=== PATIENT | male | born 1960 | race Caucasian/White ===

== ENCOUNTER 2018-04-26 21:16 | Emergency (ER) | payer OTHER, SELFPAY ==
[2018-04-26 21:18] VITALS: BP 138/86; PULSE 75; RESP 14; TEMP 36.5; O2SAT 100; BMI 21.7
[2018-04-26 22:43] VITALS: PULSE 62; RESP 18; O2SAT 96
--- NOTE | 2018-04-26 23:10 | EKG12_ITS ---
Test Reason : CP Blood Pressure : / mmHG Vent. Rate : 058 BPM Atrial Rate : 058 BPM P-R Int : 156 ms QRS Dur : 100 ms QT Int : 432 ms P-R-T Axes : 055 -18 058 degrees QTc Int : 424 ms Sinus bradycardia Cannot rule out Inferior infarct , age undetermined Abnormal ECG Confirmed by GARY VILLALOBOS, ANDRÉS ([id number]), proposal editor CARLOS HARRIS ([id number]) on 04/27/2018 1:34:46 PM Referred By: NADIRA Confirmed By:ANDRÉS VEGA MD
--- NOTE | 2018-04-26 23:10 | RAD_ITS ---
STUDY: X-RAY CHEST REASON FOR EXAM: Male, 58 years old. Fatigue. TECHNIQUE: PA and lateral views of the chest. COMPARISON: Prior comparison studies are not available for review at this time. FINDINGS: Cardiac monitoring leads are present. There is hyperinflation of the lungs consistent with chronic obstructive lung disease (COPD). There is no demonstrated pleural abnormality. Normal size heart. Normal mediastinum and holli. There is prominence of the pulmonary hilar arteries without peripheral pulmonary vascular congestion. There is atherosclerotic calcification of the aortic arch with tortuosity. There are diffuse degenerative changes of the visualized thoracic spine. Normal visualized ribs, clavicles, and shoulders. There is no demonstrated abnormality of the visualized soft tissue structures of the upper abdomen. RAD/Chest PA and Lateral IMPRESSION: COPD without radiographic evidence of acute cardiopulmonary disease. Electronically Signed: Sherry Jarvis MD at 0:43 EDT , Service support ,
[2018-04-26 23:31] LABS: Bacteria 0 SEEN /hpf (None Seen); Mucous, Urine 0 SEEN /hpf (<or=2+); Red Blood Cells-Urine 0 SEEN /hpf (0-5); Squamous Epithelial Cells - UA 0 SEEN /hpf (0-5); White Blood Cells 0 SEEN /hpf (0-5)
[2018-04-26 23:36] LABS: Absolute Lymphocyte Count 2.46 X10^3/ul (0.83-4.51); Absolute Neutrophil Count 5.8 X10^3/uL (2.0-7.7); Basophil# 0.01 X10^3/uL; Basophil% 0.1 % (0-1); Eosinophil# 0.27 X10^3/uL; Eosinophils% 2.9 % (0-5); Hematocrit 36.2 % (40-54); Hemoglobin 12.5 g/dl (13.0-16.5); Lymphocyte # 2.46 X10^3/ul (4.0); Lymphocyte % 26.3 % (19-41); Mean Corp Hgb Conc 34.5 g/gl (32-36); Mean Corpuscular Hgb 31.4 pg (27.0-32.0); Mean Platelet Vol. 9.2 fl (6.2-12.0); Monocyte# 0.82 X10^3/uL; Monocyte% 8.8 % (0-10); Neutrophil # 5.79 X10^3/uL (2.7-7.7); Neutrophil % 61.8 % (47-70); Platelet Count 235 K/mm3 (150-450); RBC Distribution Width CV 13.1 % (11.6-14.6); RBC Distribution Width SD 43.2 fl (35.1-43.9); Red Blood Count 3.98 M/mm3 (4.6-6.2); White Blood Count 9.4 K/mm3 (4.4-11.0)
[2018-04-26 23:38] LABS: POSITIVE COUNT NO; POSITIVE DIFFERENTIAL NO; POSITIVE MORPHOLOGY NO
[2018-04-26 23:45] LABS: Anion Gap 9 (5-15); BUN 15 mg/dL (7-18); BUN/Creat Ratio 18.7 RATIO (10-20); Calcium,Total 9.1 mg/dL (8.5-10.1); Chloride 102 mmol/L (98-107); EST Glomerular Filtration Rate 104 mL/min (>60); Est Glom Filt Rate - Afr Amer 126 mL/min (>60); Estimated Creatinine Clearance 92.47 ml/min; Glucose 84 mg/dL (74-106); Potassium 4.1 mmol/L (3.5-5.1); Sodium Level 141 mmol/L (136-145)
[2018-04-26 23:51] LABS: Glucose, Dipstick Normal (Normal); Ketone-Dipstick Negative (Negative); Leukocyte Esterase-Dipstick 25 /ul (Negative); Nitrite-Dipstick Negative (Negative); Occult Blood-Urine 10 /ul (Negative); Protein-Dipstick Negative (Negative); Urine Bilirubin Dipstick Negative (Negative); Urine Urobilinogen Normal (Normal); Urine pH 6.5 (5.0 - 8.0)
[2018-04-26 23:52] LABS: Color, Urine Yellow (Yellow); Urine Clarity Clear (Clear)
--- NOTE | 2018-04-27 00:52 | ED.VISSUMM ---
- ER Visit Summary Date of Service: 04/27/18 Chief Complaint: I do not have a family doctor and have been exhausted History of Present Illness: The patient is a 58 M who presents with fatigue. He states he has been very tired over the last week. He also has had some intermittent lightheadedness. He notes a 20 pound weight loss over the last 1-1/2 months. He does not really have any other focal symptoms. He denies fever congestion rhinorrhea sore throat chest pain shortness of breath cough abdominal pain nausea vomiting diarrhea. Denies blood in the stool. He denies urinary symptoms. Physical Examination: Afebrile vitals unremarkable Moist mucous membranes Heart regular rate and rhythm Lungs are clear Abdomen soft nontender Alert Normal affect Patient does have a hoarse voice which she states is related to a vocal cord surgery for a nodule and he was told that his voice may be hoarse for up to a year. Test Results: CBC notable for hemoglobin 12.5. Chemistries normal. Urinalysis normal. EKG shows sinus rhythm at a rate of 58 with no acute ischemic changes. Chest x-ray shows COPD no acute process. Emergency Department Course and Treatment: Patient's workup is unremarkable I do not see an indication for hospitalization or any further emergent intervention. However I did advise that he will require further outpatient workup. Given unexplained weight loss and fatigue he will likely need further workup including a colonoscopy. I advised him of this. He was given her referral to establish primary care physician as he does not have one. He was referred to Dr. Sanders who is next on the no [facility] PCP referral list. Treatment Plan: [] Disposition: Discharge Impression: Fatigue Weight loss This note was generated with [employer] dictation software. It may contain incorrect words, spelling, and punctuation that were not noted in review of the chart prior to signing ED Disposition - Plan for ED Patient: Chief Complaint: Fatigue Referrals: Care Physician,No Primary [Primary Care Provider] -
--- NOTE | 2018-04-27 00:55 | ED.DCSUM_ITS ---
- ER Visit Summary Date of Service: 04/27/18 Chief Complaint: I do not have a family doctor and have been exhausted History of Present Illness: The patient is a 58 M who presents with fatigue. He states he has been very tired over the last week. He also has had some intermittent lightheadedness. He notes a 20 pound weight loss over the last 1-1 /2 months. He does not really have any other focal symptoms. He denies fever congestion rhinorrhea sore throat chest pain shortness of breath cough abdominal pain nausea vomiting diarrhea. Denies blood in the stool. He denies urinary symptoms. Physical Examination: Afebrile vitals unremarkable Moist mucous membranes Heart regular rate and rhythm Lungs are clear Abdomen soft nontender Alert Normal affect Patient does have a hoarse voice which she states is related to a vocal cord surgery for a nodule and he was told that his voice may be hoarse for up to a year. Test Results: CBC notable for hemoglobin 12.5. Chemistries normal. Urinalysis normal. EKG shows sinus rhythm at a rate of 58 with no acute ischemic changes. Chest x-ray shows COPD no acute process. Emergency Department Course and Treatment: Patient's workup is unremarkable I do not see an indication for hospitalization or any further emergent intervention. However I did advise that he will require further outpatient workup. Given unexplained weight loss and fatigue he will likely need further workup including a colonoscopy. I advised him of this. He was given her referral to establish primary care physician as he does not have one. He was referred to Dr. Sanders who is next on the no [facility] PCP referral list. Treatment Plan: [] Disposition: Discharge Impression: Fatigue Weight loss This note was generated with [employer] dictation software. It may contain incorrect words, spelling, and punctuation that were not noted in review of the chart prior to signing ED Disposition - Plan for ED Patient: Chief Complaint: Fatigue Referrals: Care Physician,No Primary [Primary Care Provider] -
--- NOTE | 2018-04-27 00:55 | ED.DEP ---
ED Disposition - Plan for ED Patient: Chief Complaint: Fatigue Instructions: ED Weakness [facility] Referrals: Care Physician,No Primary [Primary Care Provider] - Matias Sanders DO [STAFF PHYSICIAN] -
[2018-04-27 01:01] VITALS: BP 132/71; PULSE 74; RESP 16; O2SAT 98
== END 2018-04-27 01:01 | disposition home or self-care (01) ==
PROVIDERS: Emergency Provider Emergency Medicine
DX: R53.83 Other fatigue (principal); R63.4 Abnormal weight loss; Z72.0 Tobacco use
CPT/HCPCS: 71046; 80048; 81001; 85025; 93005; 99284; A4216

== ENCOUNTER → 2018-05-19 10:49 | Outpatient (CLI) | payer OTHER, SELFPAY ==
[2018-05-19 13:08] LABS: Cholesterol 205 mg/dL (200); High Density Lipoprotein 71 mg/dL; PSA,Total - Annual Screen 1.17 ng/mL (0.00-4.00); Thyroid Stim Hormone (TSH) 2.38 uIU/mL (0.358-3.74); Triglycerides 46 mg/dL; Very Low Density Lipoprotein 9 mg/dL (5-40)
== END ==
PROVIDERS: Family Provider Family Medicine; PCP Family Medicine; Visit Provider Family Medicine
DX: R63.4 Abnormal weight loss (principal); Z85.21 Personal history of malignant neoplasm of larynx
CPT/HCPCS: 36415; 80061; 84153; 84443; G0103

== ENCOUNTER → 2018-05-29 07:15 | Outpatient (CLI) | payer OTHER, SELFPAY ==
--- NOTE | 2018-05-29 07:18 | CT_ITS ---
STUDY: CT CHEST WITH CONTRAST REASON FOR EXAM: Male, 58 years old. 25 pound weight loss in 1 month. 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 Smoker x1 PPD. RADIATION DOSAGE (If Supplied By Facility): CTDIvol = ( 11.3 ) mGy, DLP = ( 1045.83 ) mGycm TECHNIQUE: Transaxial imaging was performed following intravenous administration of 100 ml of Isovue 300 contrast material. Coronal and sagittal reconstructions were performed. Individualized dose optimization techniques were used for this CT. COMPARISON: None. FINDINGS: Pulmonary hyperinflation with flattening of the hemidiaphragms. No pulmonary nodules or mass. No reticulation. No centrilobular cysts. No paraseptal cysts. No blebs or bullous emphysema. There is no demonstrated pleural abnormality. Normal heart and pericardium. Normal mediastinum. Normal hilar regions. Normal enhanced pulmonary arteries. Normal aorta arch and descending thoracic aorta. Old compression fractures of the T7, T8 and T9 vertebral bodies. Anterior and lateral marginal spurs of the thoracic spine. No acute osseous abnormality. No lytic or blastic lesions. There is no demonstrated abnormality of the visualized upper abdomen. CT/Chest WITH Contrast IMPRESSION: 1. No CT evidence of any suspicious mass or malignant lesions in the chest. 2. Mild COPD without any associated centrilobular cysts, paraseptal cysts, blebs or bullous emphysema. 3. Loss of the vertebral body heights of T7 and T8 vertebral bodies and mild anterior wedging of the T9 superior endplate are presumably from remote injury. Electronically Signed: Lev Horton MD at 9:05 EDT , Service support ,
--- NOTE | 2018-05-29 07:18 | CT_ITS ---
STUDY: CT ABDOMEN AND PELVIS WITH CONTRAST REASON FOR EXAM: Male, 58 years old. Weight loss of 25 pounds in 1 month. History of laryngeal carcinoma, radiation treatment and tumor removed from vocal cord. Smoker x1 PPD. RADIATION DOSAGE (If Supplied By Facility): CTDIvol = ( 11.3 ) mGy, DLP = ( 1045.83 ) mGycm TECHNIQUE: Transaxial images were obtained from the dome of the diaphragm to the symphysis pubis with oral contrast. 100 ml of Isovue 300 contrast was administered. Sagittal and coronal images were reconstructed. Individualized dose optimization techniques were used for this CT. COMPARISON: None. FINDINGS: The visualized lung bases are unremarkable. The visualized portions of the heart are within normal limits. Normal liver. Normal gallbladder and extrahepatic biliary system. Normal spleen. Normal pancreas. Normal bilateral adrenal glands. Normal right kidney. Normal left kidney. Normal visualized stomach. Normal small intestine. Limited visualization of the colon due to absence of colorectal contrast and the paucity of intra-abdominal and intrapelvic fat. No obvious abnormality of the colon. Fecal contents in the cecum, ascending colon and transverse colon. The descending colon is collapsed. No fecal contents in the rectosigmoid colon. There is gaseous dilatation/distention of the rectum. The appendix is not visualized and is extremely difficult to find. Atherosclerotic calcifications along the infrarenal abdominal aorta and the iliac arteries. Normal inferior vena cava. Normal retroperitoneum. Normal urinary bladder. Enlarged central lobe of the prostate gland is at least BPH. Normal abdominal wall. No acute osseous abnormality. CT/Abdomen/Pelvis WITH Contrast IMPRESSION: 1. No CT evidence of any suspicious mass or acute abnormality in the abdomen and pelvis. 2. Enlarged Central lobe of the prostate gland is at least BPH. 3. Moderate amount of fecal contents in the right colon and transverse colon but none in the left colon and sigmoid colon. Lack of colorectal contrast and lack of intra-abdominal fat limits the evaluation and visualization of the entire colon. Electronically Signed: Lev Horton MD at 8:51 EDT , Service support ,
== END ==
PROVIDERS: Family Provider Family Medicine; PCP Family Medicine; Referring Provider Family Medicine; Visit Provider Family Medicine
DX: R63.4 Abnormal weight loss (principal); J44.9 Chronic obstructive pulmonary disease, unspecified; F17.200 Nicotine dependence, unspecified, uncomplicated; Z85.21 Personal history of malignant neoplasm of larynx
CPT/HCPCS: 71260; 74177; Q9967

== ENCOUNTER 2021-12-24 13:30 | Outpatient (RCR) | payer OTHER, SELFPAY ==
--- NOTE | 2021-09-17 15:28 | HP.PTEVAL_ITS ---
Patient's Visit Information ROSS PHAN is a 61 year old M referred to Physical Therapy by Dr. Juancarlos Jarvis MD with a diagnosis of Closed Displaced Fracture of Proximal End of Right Humerus- s/p ORIF. Date of Evaluation: 09/17/21 Physical Therapist: Monica Ornelas DPT - Visit Plan Frequency: 2x /Week Duration: 4 Weeks Plan: Follow MD Recommendations: Phase 1 - PROM without limits- OK for aggressive elbow and wrist motion. HEP Given IE: Wrist and Elbow ROM exercises - Subjective Slipped on ice at work on September 07, 2021- took him straight to the ER- the bone was 5 inches from where it suppose to be. Dr. Juancarlos Jarvis put a plate in it and then sent him home. 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 Right hand dominate. MD had him in a sling for surgery but told him that he is was allowed to take it off. He told him to keep it moving. He is walking it up the wall at home. He has been working his wrist/elbow. The shoul ulisses gets pretty painful. The pain is located in the anterior shoulder and radiate to the elbow, wrist and middle finger. Worst: 6/10 Agg: moving it around. Eases: ice pack and pulling it back in towards his body. Best: 1-210. Describes the pain as dull and achy and sharp/shooting- comes and goes. Sleep: in bed- not disturbed. Does have some numbness in his hand and feels cold. Fully I with everything prior to the fall. He lives alone but has family close that helps. Follow up visit with 09/29/2021. No neck pain since he took the sling off, no blurred vision, dizziness, or ALMEIDA. PMHx: cancer surgery 5 years ago- vocal cord Meds: none - Objective Posture: FH, RS- no sling but guards his right UE. Observation: incision healing well. Palpation: tender throughout shoulder- medial border of the scapula, infraspinatus, bicipital groove, down to the elbow. ROM: Cervical: WNL PROM Shoulder: Flexion:60 degrees, Abd: 50 degrees, IR: to belly, ER: 30 degr ees, Elbow: Flexion: 120 degrees Extn: -30 degrees, Supination: 20 degrees Pronation: WFL Flexion: 40 degrees Extn: 55 degrees. Finger Dexterity: can touch thumb to all but pinky. - Balance/Special Test Scores Quick DASH Score: 68.1800 - Goals Goal 1:: Patient will be I with HEP and progression Goal Time Frame: 4-6 Weeks Goal 2:: Patient will maintain proper posture t/o tx session to demo increased scap s/s Goal Time Frame: 4-6 Weeks Goal 3:: Patient will demo full AROM of the right shoulder (as per MD phases) Goal Time Frame: 4-6 Weeks Goal 4:: Patient will return to work with no restrictions (as per MD recommendations) Goal Time Frame: 4-6 Weeks - Rehabilitation Potential Physical Therapy Diagnosis: Patient presents with hypomobility s/p ORIF of right humerus. He has decreased pain free ROM, UE and scapular s/s and muscular endurance leading to poor posture and increased pain with ADL's. Rehabilitation Potential: Fair - Anticipated Interventions Patient/Client Instruction: Educate patient on: Benefits of Fitness Program Therapeutic Exercise to Include: Strength training, Endurance training, Body mechanics, Postural training, Passive ROM, Active ROM, Scapular Strength/Stabilization For the Purpose of:: To improve muscle performance and motor function Manual Therapy Techniques to Include: Passive ROM, Soft tissue mobilization TENS: Yes Cryotherapy (ice pack, ice massage): Yes Thermo therapy (hot pack): Yes Ultrasound (thermal/non thermal): No Thank you for the opportunity to evaluate your patient. For Medicare and Medicare HMO plans, please review the plan of care and approve it. It will need to be FAXED BACK to us at [phone] for Medicare purposes. For Medicare only, by signing this I certify the plan of care. Please let me know if there are questions or concerns regarding this plan of care. Physician Signature: Date:
--- NOTE | 2021-10-15 16:50 | HP.PTREVAL ---
Dr. Juancarlos Jarvis MD, It has been my pleasure to treat ROSS PHAN over the last 8 visits for Closed Displaced Fracture of Proximal End of Right Humerus- s/p ORIF. Please see the progress note below for an update on the physical therapy plan of care! Subjective: Patient reports that the pain in the shoulder comes and goes. Hard to put on his socks and shoes. Has not been lifting anything more than a coffee cup. He goes back to the MD October 27. Worst: -02/14 Agg: moving it around and sometimes when he lays down. Sleep: better- in bed- sometimes it wakes him up. Objective/Function: Posture: FH, RS. Observation: incision healing well. Palpation: tender throughout shoulder- medial border of the scapula, infraspinatus, bicipital groove, down to the elbow. ROM: Cervical: WNL PROM Shoulder: Flexion:90 degrees, Abd: 60 degrees, IR: to belly, ER: 50 degrees, Elbow: Flexion: 150 degrees Extn: 0 degrees, Supination: 30 degrees Pronation: WFL Finger Dexterity: can touch all to thumb Plan Plan: Follow MD Recommendations: Phase 1 - PROM without limits- OK for aggressive elbow and wrist motion Balance/Gait/Functional tests - Balance/Special Test Scores Quick DASH Score: 63.6350 Goals Goal 1:: Patient will be I with HEP and progression Goal Time Frame: 4-6 Weeks Goal Progress: Progressing Goal 2:: Patient will maintain proper posture t/o tx session to demo increased scap s/s Goal Time Frame: 4-6 Weeks Goal Progress: Progressing Goal 3:: Patient will demo full AROM of the right shoulder (as per MD phases) Goal Time Frame: 4-6 Weeks Goal Progress: Progressing Goal 4:: Patient will return to work with no restrictions (as per MD recommendations) Goal Time Frame: 4-6 Weeks Goal Progress: Progressing Anticipated Interventions Patient/Client Instruction: Educate patient on: Benefits of Fitness Program Therapeutic Exercise to Include: Strength training, Endurance training, Body mechanics, Postural training, Passive ROM, Active ROM, Scapular Strength/Stabilization For the Purpose of:: To improve muscle performance and motor function Manual Therapy Techniques to Include: Passive ROM, Soft tissue mobilization TENS: Yes Cryotherapy (ice pack, ice massage): Yes Thermo therapy (hot pack): Yes Ultrasound (thermal/non thermal): No Please do not hesitate to contact me at [phone] by phone or if you have questions or concerns regarding this new plan of care! Sincerely, BELLA JohnT
--- NOTE | 2021-10-29 16:40 | HP.PTREVAL ---
Dr. Juancarlos Jarvis MD, It has been my pleasure to treat ROSS PHAN over the last 12 visits for Closed Displaced Fracture of Proximal End of Right Humerus- s/p ORIF. Please see the progress note below for an update on the physical therapy plan of care! Subjective: Patient reports that he saw the doctor on Tuesday who reports that he is able to lift as long as its tolerable. Reports that the pain is bad when he tries to move it and then he lays on a heating pad. Goes back to see him December 08 and was written off work until December 13, 2021- light duty. He has to lift a lot of weight multiple times. Objective/Function: Posture: FH, RS. Observation: incision healing well. Palpation: tender throughout shoulder- medial border of the scapula, infraspinatus, bicipital groove, down to the elbow. ROM: Cervical: WNL PROM Shoulder: Flexion:90 degrees, Abd: 60 degrees, IR: to belt line, ER: 50 degrees, Elbow: Flexion: 150 degrees Extn: 0 degrees, Supination: 30 degrees Pronation: WFL Finger Dexterity: can touch all to thumb Plan Plan: Follow MD Recommendations: Phase 1 - PROM without limits- OK for aggressive elbow and wrist motion Balance/Gait/Functional tests - Balance/Special Test Scores Quick DASH Score: 63.6350 Goals Goal 1:: Patient will be I with HEP and progression Goal Time Frame: 4-6 Weeks Goal Progress: Progressing Goal 2:: Patient will maintain proper posture t/o tx session to demo increased scap s/s Goal Time Frame: 4-6 Weeks Goal Progress: Progressing Goal 3:: Patient will demo full AROM of the right shoulder (as per MD phases) Goal Time Frame: 4-6 Weeks Goal Progress: Progressing Goal 4:: Patient will return to work with no restrictions (as per MD recommendations) Goal Time Frame: 4-6 Weeks Goal Progress: Progressing Anticipated Interventions Patient/Client Instruction: Educate patient on: Benefits of Fitness Program Therapeutic Exercise to Include: Strength training, Endurance training, Body mechanics, Postural training, Passive ROM, Active ROM, Scapular Strength/Stabilization For the Purpose of:: To improve muscle performance and motor function Manual Therapy Techniques to Include: Passive ROM, Soft tissue mobilization TENS: Yes Cryotherapy (ice pack, ice massage): Yes Thermo therapy (hot pack): Yes Ultrasound (thermal/non thermal): No Please do not hesitate to contact me at [phone] by phone or if you have questions or concerns regarding this new plan of care! Sincerely, BELLA JohnT
--- NOTE | 2022-02-17 14:36 | HP.PT.NRP ---
ROSS AGIURREJulianna was seen in my office for initial evaluation on 09/17/21. The following Plan of Care was established for this patient: Initial Frequency: 2x /Week Initial Duration: 4 Weeks Patient/Client Instruction: Educate patient on: Benefits of Fitness Program Therapeutic Exercise to Include: Strength training, Endurance training, Body mechanics, Postural training, Passive ROM, Active ROM, Scapular Strength/Stabilization For the Purpose of:: To improve muscle performance and motor function Manual Therapy Techniques to Include: Passive ROM, Soft tissue mobilization TENS: Yes Cryotherapy (ice pack, ice massage): Yes Thermo therapy (hot pack): Yes Ultrasound (thermal/non thermal): No This patient was last seen in our office . Pertinent comments regarding their Physical therapy will appear below: Patient has not attended PT in over 30 days- appropriate to be d/c at this time and return to MD for further evalatuion At this point I will be discontinuing this patient from physical therapy. I would be happy to see this patient again in the future if found appropriate by the physician. Thank you! Monica Ornelas DPT Balance/Gait/Functional tests - Balance/Special Test Scores Quick DASH Score: 63.6377
== END 2021-12-24 19:00 | disposition home or self-care (01) ==
LOC: PT 13:30
PROVIDERS: PCP Family Medicine; Referring Provider Orthopaedic Surgery; Visit Provider Orthopaedic Surgery
DX: S42.291D Other displaced fracture of upper end of right humerus, subsequent encounter for fracture with routine healing (principal)
CPT/HCPCS: 97110; 97140; 97162; 97164

== ENCOUNTER → 2022-03-04 | Outpatient (CLI) | payer OTHER, SELFPAY ==
[2022-03-04 09:31] VITALS: BP 159/73; PULSE 72; RESP 16; TEMP 37; O2SAT 99; BMI 24.3
== END | disposition home or self-care (01) ==
PROVIDERS: PCP Family Medicine; Referring Provider Internal Medicine Infectious Disease; Visit Provider Internal Medicine Infectious Disease
DX: T84.7XXA Infection and inflammatory reaction due to other internal orthopedic prosthetic devices, implants and grafts, initial encounter (principal); Z79.2 Long term (current) use of antibiotics
CPT/HCPCS: 36569

== ENCOUNTER → 2022-03-05 | Outpatient (CLI) | payer OTHER, SELFPAY ==
[2022-03-05 11:27] LABS: Erythrocyte Sedimentation Rate 12 mm/hr (0-20)
[2022-03-05 11:29] LABS: Absolute Lymphocyte Count 1.35 X10^3/uL (0.83-4.51); Absolute Neutrophil Count 7.7 X10^3/uL (2.0-7.7); Basophil# 0.02 X10^3/uL; Basophil% 0.2 % (0-1); Eosinophil# 0.24 X10^3/uL; Eosinophils% 2.4 % (0-5); Hematocrit 41.6 % (40-54); Hemoglobin 14.4 g/dL (13.0-16.5); Lymphocyte # 1.35 X10^3/ul (0.83-4.51); Lymphocyte % 13.4 % (19-41); Mean Corp Hgb Conc 34.6 g/dL (32-36); Mean Corpuscular Hgb 31.9 pg (27.0-32.0); Mean Platelet Vol. 10.1 fl (6.2-12.0); Monocyte# 0.75 X10^3/uL; Monocyte% 7.4 % (0-10); NRBC Flagged by Analyzer 0 % (0-5); Neutrophil # 7.68 X10^3/uL (2.7-7.7); Neutrophil % 76.3 % (47-70); Platelet Count 305 K/mm3 (150-450); RBC Distribution Width CV 13.5 % (11.6-14.6); RBC Distribution Width SD 46.1 fl (35.1-43.9); Red Blood Count 4.52 M/mm3 (4.6-6.2); White Blood Count 10.1 K/mm3 (4.4-11.0)
[2022-03-05 11:56] LABS: AST(SGOT) 20 U/L (15-37); Alanine Aminotransfer ALT/SGPT 21 U/L (16-61); Albumin, Serum 3.9 g/dL (3.2-5.0); Alkaline Phosphatase 106 U/L (45-117); Anion Gap 4 (5-15); BUN 13 mg/dL (7-18); BUN/Creat Ratio 16.3 RATIO (10-20); Bilirubin, Direct 0.13 mg/dL (0.00-0.30); CRP 4.71 mg/L (0.0-3.0); Calcium,Total 9.4 mg/dL (8.5-10.1); Chloride 105 mmol/L (98-107); EST Glomerular Filtration Rate 104 mL/min (>60); Est Glom Filt Rate - Afr Amer 126 mL/min (>60); Globulin 3.1 g/dL (2.2-4.2); Glucose 94 mg/dL (74-106); Potassium 4.5 mmol/L (3.5-5.1); Sodium Level 138 mmol/L (136-145)
[2022-03-05 12:21] LABS: Procalcitonin < 0.04 ng/mL (0.00-0.09)
== END | disposition home or self-care (01) ==
LOC: LABSPEC 11:13
PROVIDERS: PCP Family Medicine; Referring Provider Internal Medicine Infectious Disease; Visit Provider Internal Medicine Infectious Disease
DX: T84.7XXD Infection and inflammatory reaction due to other internal orthopedic prosthetic devices, implants and grafts, subsequent encounter (principal)
CPT/HCPCS: 80048; 80076; 84145; 85025; 85652; 86140

== ENCOUNTER → 2022-03-10 | Outpatient (CLI) | payer OTHER, SELFPAY ==
[2022-03-10 10:44] LABS: Erythrocyte Sedimentation Rate 14 mm/hr (0-20)
[2022-03-10 10:45] LABS: Absolute Lymphocyte Count 1.61 X10^3/uL (0.83-4.51); Absolute Neutrophil Count 6.8 X10^3/uL (2.0-7.7); Basophil# 0.03 X10^3/uL; Basophil% 0.3 % (0-1); Eosinophil# 0.24 X10^3/uL; Eosinophils% 2.5 % (0-5); Hematocrit 39.3 % (40-54); Hemoglobin 13.5 g/dL (13.0-16.5); Lymphocyte # 1.61 X10^3/ul (0.83-4.51); Lymphocyte % 16.9 % (19-41); Mean Corp Hgb Conc 34.4 g/dL (32-36); Mean Corpuscular Hgb 31.5 pg (27.0-32.0); Mean Corpuscular Volume 91.8 fL (80-94); Mean Platelet Vol. 9.9 fl (6.2-12.0); Monocyte% 8.4 % (0-10); NRBC Flagged by Analyzer 0 % (0-5); Neutrophil # 6.82 X10^3/uL (2.7-7.7); Neutrophil % 71.7 % (47-70); Platelet Count 268 K/mm3 (150-450); RBC Distribution Width CV 13.4 % (11.6-14.6); RBC Distribution Width SD 45.5 fl (35.1-43.9); Red Blood Count 4.28 M/mm3 (4.6-6.2); White Blood Count 9.5 K/mm3 (4.4-11.0)
[2022-03-10 11:04] LABS: Procalcitonin < 0.04 ng/mL (0.00-0.09)
[2022-03-10 11:07] LABS: AST(SGOT) 17 U/L (15-37); Alanine Aminotransfer ALT/SGPT 20 U/L (16-61); Albumin, Serum 3.7 g/dL (3.2-5.0); Alkaline Phosphatase 93 U/L (45-117); Anion Gap 5 (5-15); BUN 15 mg/dL (7-18); BUN/Creat Ratio 18.6 RATIO (10-20); Bilirubin, Direct 0.14 mg/dL (0.00-0.30); CRP 5.39 mg/L (0.0-3.0); Calcium,Total 9.2 mg/dL (8.5-10.1); Chloride 106 mmol/L (98-107); Creatinine, Serum 0.81 mg/dL (0.70-1.30); EST Glomerular Filtration Rate 103 mL/min (>60); Est Glom Filt Rate - Afr Amer 124 mL/min (>60); Glucose 96 mg/dL (74-106); Potassium 4.4 mmol/L (3.5-5.1); Protein, Total 6.7 g/dL (6.4-8.2); Sodium Level 137 mmol/L (136-145)
== END | disposition home or self-care (01) ==
PROVIDERS: PCP Family Medicine; Referring Provider Internal Medicine Infectious Disease; Visit Provider Internal Medicine Infectious Disease
DX: T84.7XXD Infection and inflammatory reaction due to other internal orthopedic prosthetic devices, implants and grafts, subsequent encounter (principal)
CPT/HCPCS: 80048; 80076; 84145; 85025; 85652; 86140

== ENCOUNTER → 2022-03-16 | Outpatient (CLI) | payer OTHER, SELFPAY ==
[2022-03-16 17:19] LABS: Hemoglobin 13.4 g/dL (13.0-16.5); Mean Corp Hgb Conc 34.4 g/dL (32-36); Mean Corpuscular Hgb 31.1 pg (27.0-32.0); Mean Corpuscular Volume 90.5 fL (80-94); Mean Platelet Vol. 9.9 fl (6.2-12.0); Platelet Count 292 K/mm3 (150-450); RBC Distribution Width CV 13.1 % (11.6-14.6); RBC Distribution Width SD 43.4 fl (35.1-43.9); Red Blood Count 4.31 M/mm3 (4.6-6.2); White Blood Count 12.1 K/mm3 (4.4-11.0)
[2022-03-16 17:48] LABS: Erythrocyte Sedimentation Rate 20 mm/hr (0-20)
[2022-03-16 20:28] LABS: Procalcitonin < 0.20 ng/mL (0.00-0.09)
[2022-03-16 20:42] LABS: AST(SGOT) 20 U/L (15-37); Alanine Aminotransfer ALT/SGPT 22 U/L (16-61); Albumin, Serum 3.8 g/dL (3.2-5.0); Alkaline Phosphatase 92 U/L (45-117); Anion Gap 8 (5-15); BUN 15 mg/dL (7-18); BUN/Creat Ratio 18.6 RATIO (10-20); Bilirubin, Direct 0.12 mg/dL (0.00-0.30); Calcium,Total 9.2 mg/dL (8.5-10.1); Chloride 103 mmol/L (98-107); Creatinine, Serum 0.81 mg/dL (0.70-1.30); EST Glomerular Filtration Rate 103 mL/min (>60); Est Glom Filt Rate - Afr Amer 124 mL/min (>60); Globulin 3.1 g/dL (2.2-4.2); Glucose 112 mg/dL (74-106); Potassium 3.8 mmol/L (3.5-5.1); Protein, Total 6.9 g/dL (6.4-8.2); Sodium Level 138 mmol/L (136-145)
== END | disposition home or self-care (01) ==
LOC: LABSPEC 17:08
PROVIDERS: PCP Family Medicine; Referring Provider Internal Medicine Infectious Disease; Visit Provider Internal Medicine Infectious Disease
DX: S42.291A Other displaced fracture of upper end of right humerus, initial encounter for closed fracture (principal)
CPT/HCPCS: 80048; 80076; 84145; 85027; 85652; 86140

== ENCOUNTER 2022-04-05 13:00 | Outpatient (RCR) | payer OTHER, SELFPAY ==
--- NOTE | 2022-03-02 16:04 | HP.PTEVAL_ITS ---
Patient's Visit Information ROSS PHAN is a 62 year old M referred to Physical Therapy by Dr. 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 Date of Evaluation: 03/02/22 Physical Therapist: Vineet Hameed, PT, Cert MDT, OCS - Visit Plan Frequency: 2x /Week Duration: 6 Weeks Plan: NWB RUE OKAY AROM SHOULDER ,ELBOW ,WRIST. PATIENT PLANS TO START IV FOR OSEOMYLTITIS. PT INTERVETIONS INTAILLY PROM/AAROM /AROM SHOULDER ELBOW/WRIST EZEKIEL ,MANUAL THERAPY ,MHP/CP AND STRENGTHNEING PER MD ORDER - Subjective This 62 y/o male presents to physical therapy with right shoulder humerus. Patient initially slipped on ice August. Patient went to [facility] did x-rays showed showed nonunion humerus fracture. Patient underwent s/p ORIF humerus Sep 14. Patient started Rehab but wasn't healing so did a 2nd surgery with addition of ORIF and bone graft February 04 placed in sling [address] February 16 and to started . Did a biopsy of bone found osteomyelitis and plan to start IV antibiotics. Patient has orders for NWB RUE and ROM for shoulder ,elbow and wrist. RTD March 16. Patient has mild pain . Patient denies paresthesia/tingling. Patient condition affects ADLS self hygiene ,functional tasks above 90 ,housework and unable to RTW. Patient symptoms affects sleeping. Patient goal is to RTW and do all functional activities without pain. MEDS: oxycodone,. Patient did x-rays on 02/16 look good alignment. SOCAIL: SINGLE. VOCATION: [employer]. HOBBIES : Hunting - Pain Right Shoulder Pain Intensity (Out of 10): 5 Pain Intensity Range: 10 - Objective POSTURE: rounded shoulders. SKIN: incision well approximate. NEURO: intact ,denies paresthesia/tingling. AROM: shoulder flexion 90 degrees, abduction 80 degrees in scapation ,elbow extension 10 degrees ,flexion 125 degrees. PROM: shoulder flexion 100 degrees ,abduction 105 degrees in scapation ER 65 degrees. MMT: NT shoulder - Balance/Special Test Scores Quick DASH Score: 63.6350 - Goals Goal 1:: I with HEP Goal Time Frame: 8-12 Weeks Goal 2:: Patient to increase AROM shoulder flexion /abduction 130 degrees> and ER 85 degrees and IR to reach bedind back Goal Time Frame: 8-12 Weeks Goal 3:: Patient to demonstrate 50% improvement with improved function and decrease pain Goal Time Frame: 8-12 Weeks Goal 4:: Patient to improve strength of RTC 4/5 and deltoid 4-/5 to improve function with OH activities Goal Time Frame: 8-12 Weeks Goal 5:: Patient to improve quick dash by 5 points to improve QOL and function with OH activities Goal Time Frame: 8-12 Weeks - Rehabilitation Potential Physical Therapy Diagnosis: Patient had revision ORIF and bone graft of right humerus with decrease ROM ,decrease strength which impairs function with ADLS's ,self hygiene and thus benefit skilled PT Rehabilitation Potential: Good - Anticipated Interventions Patient/Client Instruction: Educate patient on: Condition, Plan of Care For the Purpose of:: To decrease pain, To increase ROM, To improve muscle performance and motor function, To improve ability to perform ADL's, To increase tolerance to activity/condition/position, To improve performance and independence with ADL's, To improve ability of physical actions for home/community/work/leisure, To improve health of tissue, To decrease soft tissue restriction, To increase flexibility/ROM, To improve tolerance to ADL's Therapeutic Exercise to Include: Strength training, Endurance training, Passive ROM, Active ROM Comment: strengthening per MD For the Purpose of:: To decrease pain, To increase ROM, To improve muscle performance and motor function, To improve ability to perform ADL's, To increase tolerance to activity/condition/position, To improve ability of physical actions for home/community/work/leisure, To improve health of tissue, To decrease soft tissue restriction, To increase flexibility/ROM, To assume or resume ADL's, To improve tolerance to ADL's Manual Therapy Techniques to Include: Mobilization, Passive ROM Comment: G-H For the Purpose of:: To decrease pain, To increase ROM, To improve muscle performance and motor function, To improve ability to perform ADL's, To increase tolerance to activity/condition/position, To improve performance and independence with ADL's, To improve ability of physical actions for home/community/work/leisure, To improve health of tissue, To decrease soft tissue restriction, To increase flexibility/ROM, To improve tolerance to ADL's Cryotherapy (ice pack, ice massage): Yes Thermo therapy (hot pack): Yes For the Purpose of:: To decrease pain, To improve nutrient delivery to tissue, To increase oxygenation perfusion, To improve health of tissue, To decrease soft tissue restriction Thank you for the opportunity to evaluate your patient. For Medicare and Medicare HMO plans, please review the plan of care and approve it. It will need to be FAXED BACK to us at [phone] for Medicare purposes. For Medicare only, by signing this I certify the plan of care. Please let me know if there are questions or concerns regarding this plan of care. Physician Signature: Date:
--- NOTE | 2022-05-19 10:47 | HP.PT.NRP ---
ROSS PHAN was seen in my office for initial evaluation on 03/02/22. The following Plan of Care was established for this patient: Initial Frequency: 2x /Week Initial Duration: 6 Weeks Patient/Client Instruction: Educate patient on: Condition, Plan of Care For the Purpose of:: To decrease pain, To increase ROM, To improve muscle performance and motor function, To improve ability to perform ADL's, To increase tolerance to activity/condition/position, To improve performance and independence with ADL's, To improve ability of physical actions for home/community/work/leisure, To improve health of tissue, To decrease soft tissue restriction, To increase flexibility/ROM, To improve tolerance to ADL's Therapeutic Exercise to Include: Strength training, Endurance training, Passive ROM, Active ROM For the Purpose of:: To decrease pain, To increase ROM, To improve muscle performance and motor function, To improve ability to perform ADL's, To increase tolerance to activity/condition/position, To improve ability of physical actions for home/community/work/leisure, To improve health of tissue, To decrease soft tissue restriction, To increase flexibility/ROM, To assume or resume ADL's, To improve tolerance to ADL's Manual Therapy Techniques to Include: Mobilization, Passive ROM Comment: G-H For the Purpose of:: To decrease pain, To increase ROM, To improve muscle performance and motor function, To improve ability to perform ADL's, To increase tolerance to activity/condition/position, To improve performance and independence with ADL's, To improve ability of physical actions for home/community/work/leisure, To improve health of tissue, To decrease soft tissue restriction, To increase flexibility/ROM, To improve tolerance to ADL's Cryotherapy (ice pack, ice massage): Yes Thermo therapy (hot pack): Yes For the Purpose of:: To decrease pain, To improve nutrient delivery to tissue, To increase oxygenation perfusion, To improve health of tissue, To decrease soft tissue restriction This patient was last seen in our office . Pertinent comments regarding their Physical therapy will appear below: Patient was seen for PT for revision of ORIF of shoulder with PT focusing on ROM and strengthening thus at this point, patient is d/c to HEP At this point I will be discontinuing this patient from physical therapy. I would be happy to see this patient again in the future if found appropriate by the physician. Thank you! Vineet Hameed, PT, Cert MDT, OCS Balance/Gait/Functional tests - Balance/Special Test Scores Quick DASH Score: 17.5000
== END 2022-04-05 19:00 | disposition home or self-care (01) ==
LOC: PT 13:00
PROVIDERS: PCP Family Medicine; Referring Provider Orthopaedic Surgery; Visit Provider Orthopaedic Surgery
DX: S42.201K Unspecified fracture of upper end of right humerus, subsequent encounter for fracture with nonunion (principal); X58.XXXD Exposure to other specified factors, subsequent encounter
CPT/HCPCS: 97110; 97162

== ENCOUNTER → 2022-04-29 | Outpatient (CLI) | payer OTHER, SELFPAY ==
[2022-04-29 10:09] LABS: Absolute Lymphocyte Count 1.76 X10^3/uL (0.83-4.51); Basophil# 0.02 X10^3/uL; Basophil% 0.2 % (0-1); Eosinophil# 0.26 X10^3/uL; Eosinophils% 2.3 % (0-5); Hematocrit 45.2 % (40-54); Hemoglobin 15.1 g/dL (13.0-16.5); Lymphocyte # 1.76 X10^3/ul (0.83-4.51); Lymphocyte % 15.9 % (19-41); Mean Corp Hgb Conc 33.4 g/dL (32-36); Mean Corpuscular Hgb 30.6 pg (27.0-32.0); Mean Corpuscular Volume 91.5 fL (80-94); Mean Platelet Vol. 9.1 fl (6.2-12.0); Monocyte# 1.02 X10^3/uL; Monocyte% 9.2 % (0-10); NRBC Flagged by Analyzer 0 % (0-5); Neutrophil # 7.97 X10^3/uL (2.7-7.7); Platelet Count 301 K/mm3 (150-450); RBC Distribution Width SD 43.6 fl (35.1-43.9); Red Blood Count 4.94 M/mm3 (4.6-6.2); White Blood Count 11.1 K/mm3 (4.4-11.0)
[2022-04-29 10:19] LABS: Erythrocyte Sedimentation Rate 27 mm/hr (0-20)
== END | disposition home or self-care (01) ==
LOC: PAVLAB 09:54
PROVIDERS: PCP Family Medicine; Referring Provider Internal Medicine Infectious Disease; Visit Provider Internal Medicine Infectious Disease
DX: M00.011 Staphylococcal arthritis, right shoulder (principal)
CPT/HCPCS: 36415; 85025; 85652; 86140

== ENCOUNTER → 2022-05-13 | Outpatient (CLI) | payer OTHER, SELFPAY ==
[2022-05-13 09:11] LABS: Erythrocyte Sedimentation Rate 7 mm/hr (0-20)
[2022-05-13 09:13] LABS: Absolute Lymphocyte Count 1.96 X10^3/uL (0.83-4.51); Basophil# 0.04 X10^3/uL; Basophil% 0.4 % (0-1); Eosinophils% 2.6 % (0-5); Hematocrit 42.3 % (40-54); Hemoglobin 14.3 g/dL (13.0-16.5); Lymphocyte # 1.96 X10^3/ul (0.83-4.51); Lymphocyte % 17.3 % (19-41); Mean Corp Hgb Conc 33.8 g/dL (32-36); Mean Corpuscular Hgb 31.1 pg (27.0-32.0); Mean Platelet Vol. 9.2 fl (6.2-12.0); Monocyte# 1.02 X10^3/uL; NRBC Flagged by Analyzer 0 % (0-5); Neutrophil % 70.3 % (47-70); Platelet Count 314 K/mm3 (150-450); RBC Distribution Width CV 13.2 % (11.6-14.6); RBC Distribution Width SD 44.5 fl (35.1-43.9); White Blood Count 11.4 K/mm3 (4.4-11.0)
[2022-05-13 09:58] LABS: CRP < 2.90 mg/L (0.0-3.0)
[2022-05-13 10:04] LABS: Vitamin D,25 Hydroxy 62.4 ng/mL
== END | disposition home or self-care (01) ==
LOC: PAVLAB 08:45
PROVIDERS: PCP Family Medicine; Referring Provider Internal Medicine Infectious Disease; Visit Provider Internal Medicine Infectious Disease
DX: M00.9 Pyogenic arthritis, unspecified (principal); E55.9 Vitamin D deficiency, unspecified
CPT/HCPCS: 36415; 82306; 85025; 85652; 86140

== ENCOUNTER 2024-09-02 15:44 | Inpatient (IN) | payer BC, MEDICARE, SELFPAY ==
[2024-09-02] VITALS (12 sets, daily range): BP systolic 90–171; BP diastolic 69–116; PULSE 67–86; RESP 15–24; TEMP 36–37.2; O2SAT 91–100; BMI 24.2; BMI 22.8
--- NOTE | 2024-09-02 16:03 | EKG12_ITS ---
Test Reason : AM EKG Blood Pressure : */* mmHG Vent. Rate : 67 BPM Atrial Rate : 67 BPM P-R Int : 166 ms QRS Dur : 108 ms QT Int : 436 ms P-R-T Axes : 59 -56 128 degrees QTcB Int : 460 ms Sinus rhythm with Premature atrial complexes Left axis deviation Left ventricular hypertrophy with repolarization abnormality ( R in aVL , Sokolow-Shah , Beebe prod uct , Romhilt-Corbett ) Inferior infarct , age undetermined Abnormal ECG When compared with ECG of 02-Sep-2024 16:45, MANUAL COMPARISON REQUIRED DATA IS UNCONFIRMED Confirmed by SOCRATES VILLALOBOS, JENNIFER ([id number]), development editor WHITNEY WEATHERS ([id number]) on 09/03/2024 1:59:53 PM Referred By: Johnny Rivera Confirmed By: JENNIFER RIVERA MD
--- NOTE | 2024-09-02 16:08 | RAD_ITS ---
INDICATION: cough EXAMINATION/TECHNIQUE: X-RAY - XR Chest 2 Views COMPARISON: April 26, 2018 FINDINGS: LINES/DEVICES: None. LUNGS: No consolidation, edema or effusion. The lungs remain hyperinflated. No pneumothorax. MEDIASTINUM AND CARDIOVASCULAR STRUCTURES: Cardiac silhouette not enlarged. Central airways and mediastinal contour are unremarkable. BONES AND SOFT TISSUES: There are postsurgical changes within the visualized right proximal humerus. RAD/Chest PA and Lateral IMPRESSION: No radiographic evidence of acute cardiopulmonary disease. Electronically Signed: Osiris Moreno MD at 16:57 EST ,
[2024-09-02 16:28] LABS: Absolute Lymphocyte Count 0.88 X10^3/uL (0.83-4.51); Absolute Neutrophil Count 10.1 X10^3/uL (2.0-7.7); Basophil# 0.03 X10^3/uL; Basophil% 0.3 % (0-1); Eosinophil# 0.09 X10^3/uL; Eosinophils% 0.8 % (0-5); Hematocrit 40.5 % (40-54); Lymphocyte # 0.88 X10^3/ul (0.83-4.51); Lymphocyte % 7.4 % (19-41); Mean Corp Hgb Conc 34.6 g/dL (32-36); Mean Corpuscular Hgb 31.3 pg (27.0-32.0); Mean Corpuscular Volume 90.4 fL (80-94); Mean Platelet Vol. 8.8 fl (6.2-12.0); Monocyte# 0.76 X10^3/uL; Monocyte% 6.4 % (0-10); NRBC Flagged by Analyzer 0 % (0-5); Neutrophil # 10.06 X10^3/uL (2.7-7.7); Neutrophil % 84.5 % (47-70); Platelet Count 235 K/mm3 (150-450); RBC Distribution Width CV 13.4 % (11.6-14.6); RBC Distribution Width SD 44.8 fl (35.1-43.9); Red Blood Count 4.48 M/mm3 (4.6-6.2); White Blood Count 11.9 K/mm3 (4.4-11.0)
[2024-09-02 16:49] LABS: Anion Gap 6 (5-15); BUN 21 mg/dL (7-18); BUN/Creat Ratio 20.4 RATIO (10-20); Calcium,Total 9.3 mg/dL (8.5-10.1); Chloride 103 mmol/L (98-107); Creatinine, Serum 1.03 mg/dL (0.70-1.30); EST Glomerular Filtration Rate 77 mL/min (>60); Est Glom Filt Rate - Afr Amer 93 mL/min (>60); Estimated Creatinine Clearance 70.55 ml/min; Glucose 115 mg/dL (74-106); Potassium 4.1 mmol/L (3.5-5.1); Sodium Level 135 mmol/L (136-145); Troponin-I HS 448 pg/mL (3.0-78.0)
--- NOTE | 2024-09-02 16:50 | EDS_ITS ---
HPI <NERIS Acosta - Last Filed: 09/02/24 17:05> History of Present Illness Chief Complaint: Cough Narrative Narrative: 64-year-old male with past medical history of tobacco use and no significant medical history presents with 2 weeks of cough and acute midsternal chest pain that started at 3 PM today. His chest pain is worse if he lies down. He denies shortness of breath or nausea or vomiting. No known cardiac history. He states he has not followed up with his primary care doctor in about 6 months. PFSH <NERIS Acosta - Last Filed: 09/02/24 17:05> PFSH Home Medications ?Medication ?Instructions ?Recorded ?Last Taken ?Type multivitamin 1 tab PO DAILY 03/04/22 Unknown History Allergy/AdvReac Type Severity Reaction Status Date / Time insect venom (yellow jacket) Allergy Angioedema Verified 09/02/24 15:45 Surgical History H/O shoulder surgery Social History Smoking Status: Current every day smoker tobacco type: cigarettes ROS <NERIS Acosta - Last Filed: 09/02/24 17:05> ROS ED ROS Narrative Constitutional: Positive for chills, malaise. CVS: Positive for chest pain. No syncope. Respiratory: Positive for cough. Negative for shortness of breath. GI: Negative for abdominal pain, nausea, vomiting. EXAM <NERIS Acosta - Last Filed: 09/02/24 17:05> Physical Exam Narrative Exam Narrative: CONST: Patient sitting in no acute distress. EYES: Normal inspection. NECK: Normal inspection. RESP: No respiratory distress, CTAB. CVS: Regular rate and rhythm, no murmur, no gallop. ABD: Soft and nontender, no guarding or rebound, nondistended. SKIN: Color normal, no rash, warm, dry, intact. EXTREMITIES: Normal appearance, no pedal edema. NEURO: Alert and answering questions appropriately. PSYCH: Normal affect. Const Vital Signs: 09/02/24 15:45 09/02/24 16:02 09/02/24 16:03 Temperature 96.8 F L 98.9 F Temperature Source Oral Oral Pulse Rate 85 74 78 Respiratory Rate 24 H 22 H 16 Respiratory Effort Respiratory Depth Respiratory Pattern Blood Pressure 171/102 H 162/76 H Blood Pressure Mean 125 104 Pulse Ox 91 100 98 Oxygen Delivery Method Room Air Room Air Room Air 09/02/24 16:03 09/02/24 17:00 Temperature 98.9 F Temperature Source Oral Pulse Rate 76 Respiratory Rate 16 Respiratory Effort Normal Respiratory Depth Normal Respiratory Pattern Normal Blood Pressure 166/116 H Blood Pressure Mean 132 Pulse Ox 100 Oxygen Delivery Method Nasal Cannula <Dr. Leopoldo Harkins DO - Last Filed: 09/03/24 02:09> Physical Exam Const Vital Signs: 09/02/24 15:45 09/02/24 16:02 09/02/24 16:03 Temperature 96.8 F L 98.9 F Temperature Source Oral Oral Pulse Rate 85 74 78 Respiratory Rate 24 H 22 H 16 Respiratory Effort Respiratory Depth Respiratory Pattern Blood Pressure 171/102 H 162/76 H Blood Pressure Mean 125 104 Pulse Ox 91 100 98 Oxygen Delivery Method Room Air Room Air Room Air 09/02/24 16:03 09/02/24 17:00 Temperature 98.9 F Temperature Source Oral Pulse Rate 76 Respiratory Rate 16 Respiratory Effort Normal Respiratory Depth Normal Respiratory Pattern Normal Blood Pressure 166/116 H Blood Pressure Mean 132 Pulse Ox 100 Oxygen Delivery Method Nasal Cannula MDM <NERIS Acosta - Last Filed: 09/02/24 17:05> [facility] MDM Narrative Medical decision making narrative: 64-year-old male with history of tobacco use presents with 2 weeks of URI symptoms and acute chest pressure that started at 3 PM today. He appears well and nontoxic. His blood pressure is elevated at 171/102 with otherwise stable vital signs. Initially with triage complaint of cough protocol chest x-ray was ordered. Patient was out of the room in the radiology department when I first went to assess him. When I returning of the history I was concerned that the bedside monitor showed ST elevation and called the diazo technician into the room. EKG confirms there is an inferior wall GA. Blood work returned showing a troponin of 488. He was given aspirin, heparin, and Brilinta and case was discussed with Dr. Rivera with plan to take patient to the [facility]. I will discuss the case with the hospitalist for admission. Consults: Cardiology, hospitalist 20 minutes of critical care time was consumed by evaluation of the patient, STEMI activation, discussion with multiple consultants Lab Data Attestation: I reviewed the patient's lab results. Labs: Laboratory Results - last 24 hr 09/02/24 16:18 WBC 11.9 H RBC 4.48 L Hgb 14.0 Hct 40.5 MCV 90.4 MCH 31.3 MCHC 34.6 RDW Std Deviation 44.8 H RDW Coeff of Ant 13.4 Plt Count 235 MPV 8.8 Immature Gran % (Auto) 0.600 Neut % (Auto) 84.5 H Lymph % (Auto) 7.4 L [place] % (Auto) 6.4 Eos % (Auto) 0.8 Baso % (Auto) 0.3 Absolute Neuts (auto) 10.1 H Absolute Lymphs (auto) 0.88 Nucleated RBC % 0 Sodium 135 L Potassium 4.1 Chloride 103 Carbon Dioxide 27.0 Anion Gap 6 BUN 21 H Creatinine 1.03 Estim Creat Clear Calc 70.55 Est GFR (MDRD) Af Amer 93 Est GFR (MDRD) Non-Af 77 BUN/Creatinine Ratio 20.4 H Glucose 115 H Calcium 9.3 Troponin I High Sens 448 H* Radiography Diagnostic Testing: Clinical Impression(s) from Imaging Studies Chest X-Ray 09/02/24 16:08 IMPRESSION: No radiographic evidence of acute cardiopulmonary disease. Electronically Signed: Osiris Moreno MD at 16:57 EST , EKG Initial EKG: Attestation: I personally reviewed and interpreted this EKG as follows: Interpretation: S-T Elevation Comments: ST elevation in 2 3 and aVF consistent with inferior wall GA Sinus rhythm at 75 bpm <Dr. Leopoldo Harkins, DO - Last Filed: 09/03/24 02:09> [facility] MDM Narrative Medical decision making narrative: 64-year-old male with history of tobacco use presents with 2 weeks of URI symptoms and acute chest pressure that started at 3 PM today. He appears well and nontoxic. His blood pressure is elevated at 171/102 with otherwise stable vital signs. Initially with triage complaint of cough protocol chest x-ray was ordered. Patient was out of the room in the radiology department when I first went to assess him. When I returning of the history I was concerned that the bedside monitor showed ST elevation and called the diazo technician into the room. EKG confirms there is an inferior wall GA. Blood work returned showing a troponin of 488. He was given aspirin, heparin, and Brilinta and case was discussed with Dr. Rivera with plan to take patient to the [facility]. I will discuss the case with the hospitalist for admission. Consults: Cardiology, hospitalist 20 minutes of critical care time was consumed by evaluation of the patient, STEMI activation, discussion with multiple consultants Supervisory Physician Note Patient was seen and examined with the Advanced Practice Provider. Nursing notes and vital signs have been reviewed. Pertinent old records have been reviewed. I agree with the essential elements of the REBECCA's history, physical exam, assessment, and plan. The differential diagnosis and management options were discussed with the REBECCA. I participated in determining and agree with the management, procedures, final impression and disposition as documented. See changes noted by me. Please see addendum or separate note for any additional details. Patient was first seen and evaluated by APC. EKG was obtained while APC was in the room given his complaint of chest pain. EKG was immediately presented to me after completed and patient was made a STEMI alert secondary to ST elevation in the inferior leads consistent with an inferior STEMI. Heart rate 75. I immediately went to bedside and evaluated the patient in the room. Patient endorses midsternal chest pain since 3 PM. Associated symptom is nasal congestion and cough x 2 weeks. History of tobacco abuse. Denies any fever, chills, shortness of breath, abdominal pain, nausea, vomiting. Patient ordered/given aspirin, Brilinta, heparin, NS bolus. Nitroglycerin not given secondary to inferior etiology. I spoke with Dr. Rivera on the phone who is on-call for interventional cardiology. EKG was transmitted. He agrees with transfer to the [facility] for inferior STEMI. CBC with leukocytosis of 11.9. No anemia. BNP without SP. Troponin 448. Chest x-ray without pneumonia, effusion, cardiomegaly, pneumothorax. Patient was updated of all the results and the plan for cardiac cath. He confirmed understanding. Patient transferred to the [facility]. Admit to the hospitalist service. 20 minutes of critical care time utilized in managing the patient. This is due to high probability of and deterioration of the patient based on the patient's condition and excludes any separately billable procedures. Impression: 1. Inferior STEMI Lab Data Labs: Laboratory Results - last 24 hr 09/02/24 16:18 WBC 11.9 H RBC 4.48 L Hgb 14.0 Hct 40.5 MCV 90.4 MCH 31.3 MCHC 34.6 RDW Std Deviation 44.8 H RDW Coeff of Ant 13.4 Plt Count 235 MPV 8.8 Immature Gran % (Auto) 0.600 Neut % (Auto) 84.5 H Lymph % (Auto) 7.4 L [place] % (Auto) 6.4 Eos % (Auto) 0.8 Baso % (Auto) 0.3 Absolute Neuts (auto) 10.1 H Absolute Lymphs (auto) 0.88 Nucleated RBC % 0 Sodium 135 L Potassium 4.1 Chloride 103 Carbon Dioxide 27.0 Anion Gap 6 BUN 21 H Creatinine 1.03 Estim Creat Clear Calc 70.55 Est GFR (MDRD) Af Amer 93 Est GFR (MDRD) Non-Af 77 BUN/Creatinine Ratio 20.4 H Glucose 115 H Calcium 9.3 Troponin I High Sens 448 H* Radiography Diagnostic Testing: Clinical Impression(s) from Imaging Studies Chest X-Ray 09/02/24 16:08 IMPRESSION: No radiographic evidence of acute cardiopulmonary disease. Electronically Signed: Osiris Moreno MD at 16:57 EST , Discharge Plan Dx/Rx/DC Orders Clinical Impression: Acute ST elevation myocardial infarction (STEMI) of inferior wall Disposition Disposition: Acute Care Hospital [facility] Discharge Date/Time: 09/02/24 17:41
--- NOTE | 2024-09-02 16:50 | ED.RN ---
CRITICAL TROPONIN CALLED FROM LAB OF 448. DR. BLACKBURN NOTIFIED
[2024-09-02] MEDS: TICAGRELOR 90 MG TABLET 180 MG PO (16:54)
[2024-09-02] MEDS: Heparin Injection (Vial) 5,000 UNIT/ML VIAL 4500 UNIT IV (16:55)
[2024-09-02] MEDS: Aspirin 81 MG TAB.CHEW 324 MG PO (16:57)
--- NOTE | 2024-09-02 17:29 | HP.PCM.HOS_ITS ---
HPI - General General Date of Admission: 09/02/24 Date of Service: 09/02/24 Chief Complaint: Cough and chest pain HPI Narrative ROSS PHAN, is a 64 M with history of tobacco use who presented [facility] ED 09/02/2024 with complaints of intermittent cough for 2 weeks and also subsequently reported complaint of chest pain. In the ED patient had troponin of 448 and EKG revealed changes concerning for inferior STEMI. STEMI alert called and hospitalist contacted for admission. Patient evaluated at bedside reports he is intermittently over the past couple of weeks had a cough and intermittently will feel kind of sweaty or chilled and intermittently some possible shortness of breath or lightheadedness but had no chest pain until today when he developed midsternal chest pressure at 3 PM and given his continued nature he came to the ED, feels slightly better on evaluation however still present. At this time other than rash on feet patient has no other acute complaints. PFSH Home Medications ?Medication ?Instructions ?Recorded ?Last Taken ?Type multivitamin 1 tab PO DAILY 03/04/22 Unknown History Allergy/AdvReac Type Severity Reaction Status Date / Time insect venom (yellow jacket) Allergy Angioedema Verified 09/02/24 15:45 Surgical History H/O shoulder surgery Social History Smoking Status: Current every day smoker tobacco type: cigarettes ROS ROS Narrative General: Denies fever/chills HENT: Denies headache, denies stuffy nose, denies sore throat EYES: Denies changes in vision Resp: Intermittent dry cough, intermittent shortness of breath Cardiac: Midsternal chest pressure GI: Denies abdominal pain, denies changes in bowel, denies nausea/vomiting : Denies changes in urination Extremity: Denies swelling MSK: Denies weakness Neuro: Denies any numbness/tingling Heme: Denies any bleeding or bruising Skin: Had some eczema on hands, has rash on feet Psychiatric: No complaints voiced Vital Signs Vital Signs Vital Signs: 09/02/24 15:45 09/02/24 16:02 09/02/24 16:03 Temperature 96.8 F L 98.9 F Temperature Source Oral Oral Pulse Rate 85 74 78 Respiratory Rate 24 H 22 H 16 Respiratory Effort Respiratory Depth Respiratory Pattern Blood Pressure 171/102 H 162/76 H Blood Pressure Mean 125 104 Pulse Ox 91 100 98 Oxygen Delivery Method Room Air Room Air Room Air 09/02/24 16:03 09/02/24 17:00 Temperature 98.9 F Temperature Source Oral Pulse Rate 76 Respiratory Rate 16 Respiratory Effort Normal Respiratory Depth Normal Respiratory Pattern Normal Blood Pressure 166/116 H Blood Pressure Mean 132 Pulse Ox 100 Oxygen Delivery Method Nasal Cannula Weight Weight: 74.389 kg Body Mass Index (BMI) 24.2 Physical Exam Narrative General: Alert, oriented, no apparent distress HEENT: Atraumatic, normocephalic Eyes: Anicteric, normal conjunctiva, extraocular movements grossly intact Neck: Supple Respiratory: Clear to auscultation bilaterally, normal respiratory effort Cardiovascular: Regular rate and rhythm GI: Soft, nontender, nondistended Extremities: No edema Musculoskeletal: Moving all extremities Neuro: No overt focal neurological deficits Skin: Patient with serpiginous rash on feet that appears fungal in nature Psych: Cooperative Results Lab / Micro Data 09/02/24 16:18 09/02/24 16:18 Labs: Laboratory Results - last 24 hr 09/02/24 16:18: WBC 11.9 H, RBC 4.48 L, Hgb 14.0, Hct 40.5, MCV 90.4, MCH 31.3, MCHC 34.6, RDW Std Deviation 44.8 H, RDW Coeff of Ant 13.4, Plt Count 235, MPV 8.8, Immature Gran % (Auto) 0.600, Neut % (Auto) 84.5 H, Lymph % (Auto) 7.4 L, [place] % (Auto) 6.4, Eos % (Auto) 0.8, Baso % (Auto) 0.3, Absolute Neuts (auto) 10.1 H, Absolute Lymphs (auto) 0.88, Nucleated RBC % 0, Sodium 135 L, Potassium 4.1, Chloride 103, Carbon Dioxide 27.0, Anion Gap 6, BUN 21 H, Creatinine 1.03, Estim Creat Clear Calc 70.55, Est GFR (MDRD) Af Amer 93, Est GFR (MDRD) Non-Af 77, BUN/Creatinine Ratio 20.4 H, Glucose 115 H, Calcium 9.3, Troponin I High Sens 448 H* Micro: Microbiology 09/02/24 15:47 Mucosa - Nose SARS-CoV-2, Influenza & RSV (PCR) - Final Imaging Radiology Impression Chest X-Ray 09/02/24 16:08 IMPRESSION: No radiographic evidence of acute cardiopulmonary disease. Electronically Signed: Osiris Moreno MD at 16:57 EST , Assessment & Plan Assessment/Plan (1) Acute ST elevation myocardial infarction (STEMI) of inferior wall: PLAN: Plan #STEMI -EKG on admission concerning for inferior STEMI -Cardiology contacted and STEMI alert will place -Patient to go to [facility] -Troponin 448 in the ED -Will monitor in ICU post cath -Lipid panel in the a.m. -Statin -Echo -Further orders pending findings and cardiology recommendations #Tobacco use -Advise cessation -Nicotine replacement available if desired, presently does not desire nicotine replacement # Concern for tinea pedis -Will order topical antifungal #DVT ppx: SCDs Alisa Garcia MD Charges/Coding Visit Charges Inpatient E&M: 78359 Init Hosp L1
--- NOTE | 2024-09-02 18:11 | CON.PCM.CA_ITS ---
Assessment & Plan Assessment/Plan (1) Acute ST elevation myocardial infarction (STEMI) of inferior wall: PLAN: Treated with drug-eluting stent to the RCA. We will start the patient on aspirin, Brilinta, metoprolol, statin. Recommend checking a 2D echo. HPI Consult Data Date of Consult: 09/02/24 HPI Narrative Reason for Consultation: Inferior STEMI HPI Narrative: ROSS PHAN, is a 64 M who presents with 2 weeks of cough, congestion, shortness of breath and also chest pain that started at 3 PM today. Going by the triage notes it appears that he had mentioned that he was presenting with cough, congestion and shortness of breath. An EKG was done at 4:45 PM which revealed inferior STEMI and a STEMI alert was called. Patient underwent emergent coronary angiography which revealed 100% occlusion of the mid RCA that was treated with thrombectomy and drug-eluting stent placement. Patient's chest pain resolved at the end of the procedure. He is doing well and is being admitted to the CCU for further management of his ST elevation RI. Review of systems: All systems reviewed. All else is negative except that in HPI [facility] Home Medications ?Medication ?Instructions ?Recorded ?Last Taken ?Type multivitamin 1 tab PO DAILY 03/04/22 Unknown History Allergy/AdvReac Type Severity Reaction Status Date / Time insect venom (yellow jacket) Allergy Angioedema Verified 09/02/24 15:45 Surgical History H/O shoulder surgery Social History Smoking Status: Current every day smoker tobacco type: cigarettes Physical Exam Const alert and oriented x3 HEENT normocephalic Eyes no scleral icterus Resp normal respiratory effort Cardio regular rate Psych mental status grossly normal Risk Stratification Risk Stratification Applicable: No Charges/Coding Visit Charges Inpatient E&M: 99062 Init Hosp L2 Objective Data Vital Signs: Vital Signs Temp Pulse Resp BP Pulse Ox O2 Del Method 98 F 72 18 155/98 H 96 Nasal Cannula 09/02/24 17:40 09/02/24 17:40 09/02/24 17:40 09/02/24 17:40 09/02/24 17:40 09/02/24 17:00 Oxygen Delivery Method Nasal Cannula Weight: 164 lb Body Mass Index (BMI) 24.2 Lab / Micro Data 09/02/24 16:18 09/02/24 16:18 Labs: Laboratory Results - last 24 hr 09/02/24 16:18: WBC 11.9 H, RBC 4.48 L, Hgb 14.0, Hct 40.5, MCV 90.4, MCH 31.3, MCHC 34.6, RDW Std Deviation 44.8 H, RDW Coeff of Ant 13.4, Plt Count 235, MPV 8.8, Immature Gran % (Auto) 0.600, Neut % (Auto) 84.5 H, Lymph % (Auto) 7.4 L, [place] % (Auto) 6.4, Eos % (Auto) 0.8, Baso % (Auto) 0.3, Absolute Neuts (auto) 10.1 H, Absolute Lymphs (auto) 0.88, Nucleated RBC % 0, Sodium 135 L, Potassium 4.1, Chloride 103, Carbon Dioxide 27.0, Anion Gap 6, BUN 21 H, Creatinine 1.03, Estim Creat Clear Calc 70.55, Est GFR (MDRD) Af Amer 93, Est GFR (MDRD) Non-Af 77, BUN/Creatinine Ratio 20.4 H, Glucose 115 H, Calcium 9.3, Troponin I High Sens 448 H* Micro: Microbiology 09/02/24 15:47 Mucosa - Nose SARS-CoV-2, Influenza & RSV (PCR) - Final Cardiology Labs/Tests 09/02/24 16:18: WBC 11.9 H, RBC 4.48 L, Hgb 14.0, Hct 40.5, MCV 90.4, MCH 31.3, MCHC 34.6, Plt Count 235, MPV 8.8, Immature Gran % (Auto) 0.600, Neut % (Auto) 84.5 H, Lymph % (Auto) 7.4 L, [place] % (Auto) 6.4, Eos % (Auto) 0.8, Baso % (Auto) 0.3, Absolute Neuts (auto) 10.1 H, Nucleated RBC % 0, Sodium 135 L, Potassium 4.1, Chloride 103, Carbon Dioxide 27.0, Anion Gap 6, BUN 21 H, Creatinine 1.03, Est GFR (MDRD) Af Amer 93, Est GFR (MDRD) Non-Af 77, BUN/Creatinine Ratio 20.4 H , Glucose 115 H, Calcium 9.3 Rhythm: EKG: ECHO: Stress Test: Cardiac Cath: PCI: CT Surgery: Holter monitor: EPS: PPM: CXR: Chest CT Scan: Radiography Diagnostic Testing: Radiology Impression Chest X-Ray 09/02/24 16:08 IMPRESSION: No radiographic evidence of acute cardiopulmonary disease. Electronically Signed: Osiris Moreno MD at 16:57 EST ,
--- NOTE | 2024-09-02 18:30 | EKG12_ITS ---
Test Reason : CP Blood Pressure : */* mmHG Vent. Rate : 75 BPM Atrial Rate : 75 BPM P-R Int : 166 ms QRS Dur : 86 ms QT Int : 378 ms P-R-T Axes : 6 -50 97 degrees QTcB Int : 422 ms Critical Test Result: STEMI Sinus rhythm with Premature atrial complexes Left axis deviation Left ventricular hypertrophy with repolarization abnormality ( R in aVL ) Inferior infarct ACUTE ME / STEMI Consider right ventricular involvement in acute inferior infarct Abnormal ECG When compared with ECG of 26-Apr-2018 23:19, Significant changes have occurred Confirmed by SOCRATES VILLALOBOS, JENNIFER ([id number]), senior editor WHITNEY WEATHERS ([id number]) on 09/05/2024 7:55:13 AM Referred By: Johnny Rivera Confirmed By: JENNIFER RIVERA MD
--- NOTE | 2024-09-02 18:34 | CL.I_ITS ---
Patient Name: ROSS PHAN Study Date: 09/02/2024 Performing: Thelma Rivera MD Ht: 69 inches 175.26 cm : 1960 Wt: 164 lbs 74.39 kg Age: 64 Gender: male BSA: 1.9 PROCEDURE(S) PERFORMED DC02-(46753)LHC/COR IC16-([id number])AMI, TRUPTI OR PTCA, ARTERY/GRAFT, SINGLE VESSEL CLINICAL PROFILE AND CO-MORBIDITIES Indications: ACS <= 24 hrs, STEMI Heart Failure: None CONCLUSIONS CAD as described. Successful thrombectomy and drug-eluting stent to mid RCA RECOMMENDATIONS DESCRIPTION OF PROCEDURE The patient arrived to the procedure lab. The risks and benefits of the procedure as well as a full description of our services here and lack of surgical backup were fully explained to the patient and/or their significant other prior to the catheterization. The Timeout was completed, verifying the correct patient and procedure. The patient's procedural site was prepped and draped in the usual fashion. Local anesthetic was given subcutaneously to right radial region with Lidocaine 2%. Using a modified Seldinger technique, arterial access was obtained via the right radial artery, a 6Fr sheath was inserted.. Left Coronary Artery selective angiography was performed in multiple views using a 5 Fr. JL3.5 catheterThe images were reviewed and options discussed. A decision was then made to proceed with an Intervention, IVUS or other adjunct procedure. JR4 Guide catheter was inserted and engaged into the RCA. Priority One inserted Pass # 1 Priority One Removed Angiogram performed post priority one aspiration. Angiogram performed post priority one aspiration. BMW Guide wire was advanced to the RCA. Emerge 3.5x12 Balloon catheter was inserted. Balloon catheter was advanced across lesion in the right coronary, mid. PTCA balloon inflated at 6 atms for 6 secs. PTCA balloon inflated at 6 atms for 20 secs. PTCA balloon inflated at 6 atms for 6 secs. Angiogram performed post balloon dilatation. PTCA balloon inflated at 10 atms for 18 secs. 3.5x26 [place] Drug Eluting stent was inserted. Drug Eluting stent was advanced across the lesion in the right coronary, mid. Angiogram performed post stent deployment. Angiogram performed post stent deployment. The arterial sheath was pulled and a TR Band was applied for hemostasis. 11cc of air CORONARY ANGIOGRAPHY DOMINANCE: Right Dominant LEFT HEART ASSESSMENT LEFT MAIN: Mild luminal irregularities LEFT ANTERIOR DESCENDING ARTERY: mild diffuse disease CIRCUMFLEX ARTERY: Mild luminal irregularities RIGHT CORONARY ARTERY: MID RCA: 100 % Stenosis VALVE FINDINGS: No Aortic Valve Stenosis INTERVENTION INFORMATION LESION SITE: RCA (Mid) Lesion Complexity: High/C, chronic total occlusion: No, lesion at bifurcation: No, thrombus present: Yes, lesion length: 25 mm, culprit lesion: Yes, Previously treated lesion: No Pre Stenosis: 100 % Pre intervention DONNA flow: 0 PROCEDURE: Thrombectomy, Drug Eluting Stent with pre dilatation. Post Stenosis: 0 % Post intervention DONNA flow: 3 Lesion Devices: Wilder .014 190cm BMW [place] Straight Cordis 6 Fr JR4 100cm Guide Catheter Terum Priority One Aspiration Catheter Sherwin Sci EMERGE MR 3.50x12 BALLOON Medtronic 3.5 x 26 YAHAIRA FRONTIER TRUPTI COMPLICATIONS No Complications PROCEDURE MEDICATIONS Oxygen: 2 L/min via nasal cannula Atropine 1mg/10ml 0.5 amp 09/02/2024 17:47:26 Atropine 1mg/10ml 0.5 amp @ 09/02/2024 17:47:26 Heparin given IA 09/02/2024 17:36:01 Verapamil 2.5mg, Ntg 100mcgs, 3000 units of Heparin given IA 09/02/2024 17:36:01 SUMMARY OF HEMODYNAMIC DATA Time AIR REST ECG 17:33:49 ECG 17:34:25 AO 97/48 (68) SA 17:37:56 LV 131/5, 13 17:40:39 LV 130/3, 9 17:40:48 LVp 111/2, 8 17:41:02 AOp 0/34 (43) 17:41:09 AOp 140/67 (95) 17:41:15 AO 66/37 (50) 17:49:10 AO 106/59 (78) 17:53:07 ECG 18:06:47 Signed By Thelma Rivera MD On 09/03/2024 08:25:50 Signed By Thelma Rivera MD On 09/02/2024 18:33:31 Thelma Rivera MD
--- NOTE | 2024-09-02 18:59 | ECHOD_ITS ---
Reason For Study: Chest pain, STEMI Procedure This was a 2D Doppler, Color Flow transthoracic echocardiogram. Exam performed portable in ICU/CCU. Left Ventricle Normal LV size. The estimated ejection fraction is 45-50 %. Diastolic function is indeterminate. There is mild global hypokinesis of the left ventricle. Right Ventricle Normal RV size. Normal systolic function. Atria There is mild biatrial dilatation. No doppler evidence for ASD. Mitral Valve There is no mitral valve stenosis. Mild (1+) mitral valve insufficiency. Tricuspid Valve There is no tricuspid stenosis. Trivial tricuspid valve insufficiency. Unable to estimate RV systolic pressure due to insufficient tricuspid regurgitant envelope. Aortic Valve Trisinus/trileaflet aortic valve. Aortic sclerosis, no stenosis. There is no aortic stenosis. No aortic valve insufficiency. Pulmonic Valve There is no pulmonic valvular stenosis. No pulmonic valve insufficiency. Great Vessels Normal aortic root. Pericardium/Pleural No pericardial effusion. MMode/2D Measurements & Calculations LVIDd: 5.6 cm IVSd: 1.3 cm LVOT diam: 2.1 cm LVIDs: 4.8 cm LVPWd: 1.2 cm LVOT area: 3.5 cm2 RVDd: 4.7 cm FS: 14.2 % asc Aorta Diam: 2.9 cm LAV(MOD-bp): 72.3 ml LVAd ap4: 40.0 cm2 LAV(MOD-bp) Indexed: 39.9 ml/m2 LVLd ap4: 9.1 cm LAV(MOD-sp2): 73.8 ml EDV(MOD-sp4): 149.3 ml LAV(MOD-sp4): 67.3 ml EDV(sp4-el): 149.4 ml LVAs ap4: 32.9 cm2 LVLs ap4: 8.4 cm ESV(MOD-sp4): 112.2 ml ESV(sp4-el): 109.8 ml EF(MOD-sp4): 24.9 % EF(sp4-el): 26.5 % LVAd ap2: 42.2 cm2 SV(MOD-sp4): 37.1 ml SV(MOD-sp2): 45.6 ml LVLd ap2: 9.9 cm SI(MOD-sp4): 20.5 ml/m2 SI(MOD-sp2): 25.1 ml/m2 EDV(MOD-sp2): 154.4 ml EDV(sp2-el): 153.4 ml LVAs ap2: 33.1 cm2 LVLs ap2: 8.5 cm ESV(MOD-sp2): 108.8 ml ESV(sp2-el): 109.1 ml EF(MOD-sp2): 29.5 % SV(sp4-el): 39.6 ml LA dimension(2D): 4.7 cm LA A4 area: 21.0 cm2 RA A4 area: 20.5 cm2 TAPSE: 1.7 cm Time Measurements MV dec time: 0.18 sec Doppler Measurements & Calculations MV E max tod: 52.6 cm/sec Lat Peak E' Tod: 8.7 cm/sec Med Peak E' Tod: 4.6 cm/sec MV A max tod: 87.2 cm/sec E/E' lat: 6.0 E/E' med: 11.4 MV E/A: 0.60 Ao V2 max: 166.5 cm/sec LV V1 max: 78.9 cm/sec MV dec slope: 293.3 cm/sec2 Ao max P.1 mmHg LV V1 max P.5 mmHg Ao V2 mean: 108.9 cm/sec LV V1 mean P.4 mmHg Ao mean P.5 mmHg LV V1 mean: 55.0 cm/sec Ao V2 VTI: 31.1 cm LV V1 VTI: 16.5 cm AV (velocity ratio): 0.53 VINITA(I,D): 1.8 cm2 VINITA(V,D): 1.6 cm2 SV(LVOT): 57.4 ml PA V2 max: 72.5 cm/sec ECHO/Echo Complete Interpretation Summary The estimated ejection fraction is 45-50 %. Diastolic function is indeterminate. There is mild biatrial dilatation. Mild (1+) mitral valve insufficiency. Ordering Physician: Alisa Garcia Referring Physician: Johnny Rivera Performed By: Arianne Rosas RDCS
--- NOTE | 2024-09-02 20:53 | EKG12_ITS ---
Test Reason : POST PCI Blood Pressure : */* mmHG Vent. Rate : 70 BPM Atrial Rate : 70 BPM P-R Int : 170 ms QRS Dur : 106 ms QT Int : 440 ms P-R-T Axes : 63 -54 222 degrees QTcB Int : 475 ms Sinus rhythm with Premature atrial complexes with Aberrant conduction Left anterior fascicular block Moderate voltage criteria for LVH, may be normal variant ( R in aVL , [place] product ) Inferior infarct , age undetermined ST & T wave abnormality, consider lateral ischemia Abnormal ECG No previous ECGs available Confirmed by SOCRATES VILLALOBOS, JENNIFER ([id number]), design editor KAROYLN SCOTT ([id number]) on 09/06/2024 7:39:08 AM Referred By: Johnny Rivera Confirmed By: JENNIFER RIVERA MD
[2024-09-02] MEDS: Clotrimazole 1 APPLIC Tube TOPICAL (21:08)
[2024-09-02] MEDS: TICAGRELOR 90 MG TABLET PO (21:09)
[2024-09-02] MEDS: Atorvastatin Calcium 40 MG Tablet PO (21:09)
[2024-09-02] MEDS: Metoprolol Tartrate 25 MG Tablet PO (21:09)
[2024-09-03] VITALS (16 sets, daily range): BP systolic 108–154; BP diastolic 58–91; PULSE 58–88; RESP 18–20; TEMP 36.2–37.1; O2SAT 98–100; BMI 22.4
[2024-09-03 04:46] LABS: Absolute Lymphocyte Count 1.13 X10^3/uL (0.83-4.51); Absolute Neutrophil Count 9.5 X10^3/uL (2.0-7.7); Basophil# 0.03 X10^3/uL; Basophil% 0.3 % (0-1); Eosinophil# 0.12 X10^3/uL; Hematocrit 36.2 % (40-54); Hemoglobin 12.7 g/dL (13.0-16.5); Lymphocyte # 1.13 X10^3/ul (0.83-4.51); Lymphocyte % 9.7 % (19-41); Mean Corp Hgb Conc 35.1 g/dL (32-36); Mean Corpuscular Hgb 31.1 pg (27.0-32.0); Mean Corpuscular Volume 88.5 fL (80-94); Mean Platelet Vol. 8.7 fl (6.2-12.0); Monocyte# 0.87 X10^3/uL; Monocyte% 7.5 % (0-10); NRBC Flagged by Analyzer 0 % (0-5); Neutrophil # 9.45 X10^3/uL (2.7-7.7); Neutrophil % 81.1 % (47-70); Platelet Count 198 K/mm3 (150-450); RBC Distribution Width CV 13.6 % (11.6-14.6); RBC Distribution Width SD 44.6 fl (35.1-43.9); Red Blood Count 4.09 M/mm3 (4.6-6.2); White Blood Count 11.7 K/mm3 (4.4-11.0)
[2024-09-03 05:11] LABS: ALB/GLOB Ratio 1.2 RATIO (0.9-2.4); AST(SGOT) 502 U/L (15-37); Alanine Aminotransfer ALT/SGPT 79 U/L (16-61); Albumin, Serum 3.3 g/dL (3.2-5.0); Alkaline Phosphatase 60 U/L (45-117); Anion Gap 7 (5-15); BUN 16 mg/dL (7-18); BUN/Creat Ratio 24.2 RATIO (10-20); Calcium,Total 8.9 mg/dL (8.5-10.1); Chloride 106 mmol/L (98-107); Creatinine, Serum 0.66 mg/dL (0.70-1.30); EST Glomerular Filtration Rate 128 mL/min (>60); Est Glom Filt Rate - Afr Amer 155 mL/min (>60); Estimated Creatinine Clearance 87.88 ml/min; Globulin 2.7 g/dL (2.2-4.2); Glucose 99 mg/dL (74-106); Potassium 3.9 mmol/L (3.5-5.1); Sodium Level 137 mmol/L (136-145)
--- NOTE | 2024-09-03 06:47 | CRPHASE1_ITS ---
Patient Communication Patient Information PHII Cardiac Rehab Discussed with Patient:: Yes Guide to Cardiac Rehab Given to Patient:: Yes Cardiac Rehab Facility Choice List Given to Patient:: Yes Communication to Cardiac Rehab Choice Program [facility] CR PHII:: Communication Given to CR Link Trainer Maintenance Worker:: Johnny Rivera Phase II Cardiac Rehab:: Yes Sessions:: 36 sessions - 3 days/wk, 12 weeks Cardiac Rehabilitation Info Program Information Cardiac Rehabilitation Program Information: Cardiac Rehab The cardiac rehab team at [facility] consists of highly skilled exercise physiologists, nurses, respiratory therapists and physicians working together with you. Our purpose is to help you have a full recovery and achieve the goals you set for yourself. Over the years many of our patients have returned to activities they assumed they would never do again! We can help restore your confidence and motivation to make lifestyle changes that can have a significant impact on your health and quality of life! We can help answer questions and concerns you may have about exercise, lifestyle, medications, diet, stress and anxiety which are common following a hospitalization. WE monitor ECG and vital signs during exercise and discuss your progress with you and report to your physician(s). Cardiac Rehab is proven to help reduce readmissions, improve functional capacity and lower recurrence of problems with your heart. Our Cardiac Rehab program is Certified by the [place] [employer] Pulmonary [employer] (AACVPR) and Accredited by the [place] [employer] through our [facility]. You can contact us at . We invite you to call us with your questions or to get started in our program. If you have other questions or concerns be sure to ask your physician/provider during your follow-up visit. WE look forward to seeing you!
--- NOTE | 2024-09-03 06:48 | CRPH1.INSTRU ---
General Education Discussed with Patient CAD and cardiac anatomy and function:: Patient communicates acknowledgment Explanation of diagnoses and procedures:: Patient communicates acknowledgment Sign/Symptoms of MO:: Patient communicates acknowledgment Antiplatelet therapy: Patient communicates acknowledgment Proper use of NTG-SL: Patient communicates acknowledgment Emergency procedures and activation of EMS: Patient communicates acknowledgment Compliance of all prescribed medications: Patient communicates acknowledgment Smoking Recommendations Recommendations Include:: Smoking cessation strategies/Smoking packet Response Code Nicotine/Smoking Response Code:: Patient communicates acknowledgment Dyslipidemia Risk Factors Patient Dyslipidemia Risk Factors Are:: Total Cholesterol, Triglycerides, HDL and LDL Recommendations Recommendations Include:: Lipid profile not available Response Code Dyslipidemia Response Code:: Patient communicates acknowledgment Hypertension Recommendations Recommendations Include:: Maintain BP <130/85 and Decrease/maintain normal body weight Response Code Hypertension:: Patient communicates acknowledgment and Family communicates acknowledgment Sedentary Risk Factors Patient Sedentary Risk Factors Are:: Lack of regular exercise Recommendations Recommendations Include:: Aerobic exercise 5-7 times/week for 20-30 minutes continuously, Benefits of regular exercise, Discussed home walking program and Monitored Outpatient Cardiac Rehab Response Code Sedentary Response Code:: Patient communicates acknowledgment Stress Risk Factors Patient Stress Risk Factors Are:: Patient denies stress as a risk factor Recommendations Recommendations Include:: Identification of stressors, and assessment of coping skills and Stress management techniques Response Code Stress Response Code:: Patient communicates acknowledgment
--- NOTE | 2024-09-03 07:34 | PN.HOSP_ITS ---
Reason for Visit Reason for Visit: Chest pain Subjective Subjective Mr. Hinkle is a 64-year-old white male who presented to emergency department [facility] on 09/02/2024 with cough and chest pain. Patient has a history of tobacco abuse with no other medical history and reported he been having an intermittent cough about 2 weeks with subsequent chest pain. Patient indicated he intermittently felt kind of sweaty and chilled and possibly had some shortness of breath and lightheadedness but no chest pain until the day of presentation. On the day of presentation he developed midsternal chest pain at 3 PM that was persistent so he came to emergency department for evaluation. At the time of admission he was still having some mild chest pain but felt slightly better than on presentation. Vital signs at the time of presentation showed temperature of 96.8, heart rate 85, respiratory 24, blood pressure was 171/102 with a repeat of 162/76 and pulse ox was 91% on room air with a repeat of 100% on room air. Initial CBC showed a mild leukocytosis but white count of 11.9 and a left shift having an 84 per 5% neutrophilia. Chemistry panel showed mild hyponatremia the sodium of 135 and a slightly elevated BUN at 21 with creatinine of 1.03. Baseline appears to be between 1.6 and 1.8. AST was elevated at 502 with an ALT of 79. Initial troponin was 448. EKG was done in the emergency department which revealed STEMI and STEMI alert was called. He was taken emergently to [facility] on 09/02/2024 where a TRUPTI was performed after thrombectomy of the RCA. Overnight he had minimal ectopy with a longest reperfusion VT of 4 beats. He is asymptomatic at this time and feeling well. He just asks for breakfast. Objective Data Objective Data Vital Signs: Vital Signs Temp Pulse Resp BP Pulse Ox O2 Del Method 98.1 F 60 20 H 129/90 H 99 Room Air 09/03/24 03:00 09/03/24 07:00 09/03/24 07:00 09/03/24 07:00 09/03/24 07:00 09/03/24 07:00 Oxygen Delivery Method Room Air Weight: 68.5 kg Body Mass Index (BMI) 22.4 Intake & Output: Intake and Output for Last 24 Hours 09/01/24 09/02/24 09/03/24 23:59 23:59 23:59 Intake Total 350 / 350 Balance 350 / 350 Lab / Micro Data 09/03/24 04:35 09/03/24 04:35 Labs: Laboratory Results - last 24 hr 09/02/24 16:18: WBC 11.9 H, RBC 4.48 L, Hgb 14.0, Hct 40.5, MCV 90.4, MCH 31.3, MCHC 34.6, RDW Std Deviation 44.8 H, RDW Coeff of Ant 13.4, Plt Count 235, MPV 8.8, Immature Gran % (Auto) 0.600, Neut % (Auto) 84.5 H, Lymph % (Auto) 7.4 L, [place] % (Auto) 6.4, Eos % (Auto) 0.8, Baso % (Auto) 0.3, Absolute Neuts (auto) 10.1 H, Absolute Lymphs (auto) 0.88, Nucleated RBC % 0, Sodium 135 L, Potassium 4.1, Chloride 103, Carbon Dioxide 27.0, Anion Gap 6, BUN 21 H, Creatinine 1.03, Estim Creat Clear Calc 70.55, Est GFR (MDRD) Af Amer 93, Est GFR (MDRD) Non-Af 77, BUN/Creatinine Ratio 20.4 H, Glucose 115 H, Calcium 9.3, Troponin I High Sens 448 H* 09/03/24 04:35: WBC 11.7 H, RBC 4.09 L, Hgb 12.7 L, Hct 36.2 L, MCV 88.5, MCH 31.1, MCHC 35.1, RDW Std Deviation 44.6 H, RDW Coeff of Ant 13.6, Plt Count 198, MPV 8.7, Immature Gran % (Auto) 0.400, Neut % (Auto) 81.1 H, Lymph % (Auto) 9.7 L, [place] % (Auto) 7.5, Eos % (Auto) 1.0, Baso % (Auto) 0.3, Absolute Neuts (auto) 9.5 H, Absolute Lymphs (auto) 1.13, Nucleated RBC % 0, Sodium 137, Potassium 3.9, Chloride 106, Carbon Dioxide 24.0, Anion Gap 7, BUN 16, Creatinine 0.66 L, Estim Creat Clear Calc 87.88, Est GFR (MDRD) Af Amer 155, Est GFR (MDRD) Non-Af 128, BUN/Creatinine Ratio 24.2 H, Glucose 99, Calcium 8.9, Total Bilirubin 0.70, AST 502 H, ALT 79 H, Alkaline Phosphatase 60, Total Protein 6.0 L, Albumin 3.3, Globulin 2.7, Albumin/Globulin Ratio 1.2 Micro: Microbiology 09/02/24 15:47 Mucosa - Nose SARS-CoV-2, Influenza & RSV (PCR) - Final Radiography Diagnostic Testing: Radiology Impression Chest X-Ray 09/02/24 16:08 IMPRESSION: No radiographic evidence of acute cardiopulmonary disease. Electronically Signed: Osiris Moreno MD at 16:57 EST , Physical Exam Const alert, oriented x3, no apparent distress, average body habitus and well nourished Constitutional Narrative: Thin, upper middle-aged, white male, sitting up in bed, appears older than stated age, appears comfortable, nontoxic HEENT head/scalp atraumatic and moist oral mucous membranes HEENT Narrative: Dentures in place, Mallampati is 2, no thrush Head and Scalp: normocephalic Neck supple Neck Narrative: Trachea midline Resp normal respiratory effort, no retractions, no use of accessory muscles and clear to auscultation bilaterally Resp Narrative: Diminished diffusely but clear Auscultation: Negative for rales, rhonchi or wheezes Cardio regular rate, regular rhythm, S1 normal heart sound, S2 normal heart sound, no murmurs, no rub, no gallops and no clicks GI normal to inspection, nondistended, normoactive bowel sounds, soft to palpation and non-tender Extremity no clubbing, cyanosis or edema Extremity Narrative: Radial pulses are 2+, pedal pulses 1+ bilaterally Neuro oriented x3, moves all extremities and no focal motor deficits Speech: speech normal Psych affect normal Psych Narrative: Very pleasant, interacts appropriately Assessment & Plan Assessment/Plan (1) Acute ST elevation myocardial infarction (STEMI) of inferior wall: (2) Stented coronary artery: (3) Arteriosclerosis of coronary artery: PLAN: Plan STEMI-inferior wall -Post cath day 1 with thrombectomy and PCI to RCA -Continue aspirin, Plavix, metoprolol, atorvastatin -Add lisinopril 5 mg daily -Goal blood pressure will be less than 130/80 -Echocardiogram is pending -Check lipid panel -Recommend smoking cessation -Minimal reentry arrhythmia -Transfer to PCU -Cardiac rehab consultation -Anticipate discharge in the next 24 hours as long as he remains stable -Cardiology is following-appreciate input Transaminase elevation -Suspect related the above -Will trend and follow with repeat lab in a.m. Tinea pedis -Continue topical antifungal Tobacco abuse -Advised cessation -Patient reports he is previously had a 6-month period where he was not smoking -Nicotine patch available if desired however patient declines at this time DVT prophylaxis -Start subcu enoxaparin 40 daily CODE STATUS -Full code as verified at the time of admission Charges/Coding Visit Charges Inpatient E&M: 67427 Subs Hosp L2
[2024-09-03] MEDS: Clotrimazole 1 APPLIC Tube TOPICAL ×2 (08:28→21:19)
[2024-09-03] MEDS: TICAGRELOR 90 MG TABLET PO ×2 (08:28→21:19)
[2024-09-03] MEDS: Aspirin E.C. 81 MG Tablet PO (08:28)
[2024-09-03] MEDS: Metoprolol Tartrate 25 MG Tablet PO (08:31)
--- NOTE | 2024-09-03 08:48 | ECQM.STEMI ---
STEMI STEMI ED Door Time / Other REG STEMI EKG Time (1) Acute ST elevation myocardial infarction (STEMI) of inferior wall: Acute 09/02/24 15:44 Balloon/Aspiration Date-Time Date of Balloon/Aspiration:: 09/02/24 Time of Balloon/Aspiration:: 17:44
--- NOTE | 2024-09-03 09:35 | CASEMGMT ---
RADHA MARTINEZ Assessment Face to Face with patient for initial transition planning/care coordination assessment. RADHA MARTINEZ introduced self and role at [facility], pt voices understanding. Pt is A&Ox4 and is resting comfortably in bed and is calm. Care providers, pharmacy, and demographics verified. Admitting dx: STEMI LACE Strata: 2 PCP: Waleska Hyde Specialists: Denies Preferred Pharmacy: [facility] during this stay. Pt may receive a new Rx for a blood thinning medication. Pt states that he is willing to do meds to bed at the time of DC and will have a payment method for the pharmacy. CM to follow for Rx cost Insurance: ELPIDIO ROJAS Prescription Benefit: Yes LNOK: Jaky (Mom) Living Arrangements: Pt lives alone on the second floor of an apartment complex and states that he has to manage a flight of steps to enter (with handrails) as there is no elevator. ADLs/IADLs: Pt is independent and denies issues with the steps mentioned above Transportation: Self. Pt plans to drive self back to his apartment and denies concerns DME: Denies all DME uses or needs HHC/SNF: Reports HH history but is unsure of the agency.Denies SNF Hx or needs Pt?s goal: Return home Plan: Home, anticipate a new Rx for a blood thinning medication. Pt prefers [facility] during this stay and plans to do meds to bed. Current 6-Click score is 20 and there is no therapy ordered or needed per the pt. Pt denies the need for HH, OP Tx (pt has a Hx @ [facility]), or CCN. Pt denies further needs at this time and is projected to transfer to PCU today. Rubén Jarvis RN, CM
--- NOTE | 2024-09-03 10:00 | EKG12_ITS ---
Test Reason : AM EKG Blood Pressure : */* mmHG Vent. Rate : 63 BPM Atrial Rate : 63 BPM P-R Int : 158 ms QRS Dur : 108 ms QT Int : 444 ms P-R-T Axes : 44 -55 120 degrees QTcB Int : 454 ms Normal sinus rhythm Left axis deviation Left ventricular hypertrophy with repolarization abnormality ( R in aVL , Sokolow-Shah , Hope prod uct , Romhilt-Corbett ) Inferior infarct , age undetermined Abnormal ECG When compared with ECG of 03-Sep-2024 04:54, MANUAL COMPARISON REQUIRED DATA IS UNCONFIRMED Confirmed by SOCRATES VILLALOBOS, JENNIFER ([id number]), social work coordinator WHITNEY WEATHERS ([id number]) on 09/03/2024 1:59:21 PM Referred By: Johnny Rivera Confirmed By: JENNIFER RIVERA MD
[2024-09-03] MEDS: Enoxaparin 40 MG/0.4 ML Syringe SC (10:12)
[2024-09-03 10:16] LABS: Cholesterol 204 mg/dL (200); High Density Lipoprotein 71 mg/dL; Triglycerides 75 mg/dL; Very Low Density Lipoprotein 15 mg/dL (5-40)
--- NOTE | 2024-09-03 15:10 | PN.CARD_ITS ---
Subjective Subjective Patient is doing very well. However he has had episodes of nonsustained V. tach and also 1 pause that was about 5.4 seconds. He was asymptomatic at this time. Objective Data Vital Signs: Vital Signs Temp Pulse Resp BP Pulse Ox O2 Del Method 98.8 F 58 L 18 108/58 L 99 Room Air 09/03/24 12:10 09/03/24 12:10 09/03/24 12:10 09/03/24 12:10 09/03/24 12:10 09/03/24 14:57 Oxygen Delivery Method Room Air Weight: 151 lb 0.266 oz Body Mass Index (BMI) 22.4 Intake & Output: Intake and Output for Last 24 Hours 09/01/24 09/02/24 09/03/24 23:59 23:59 23:59 Intake Total 590 / 590 Balance 590 / 590 Lab / Micro Data 09/03/24 04:35 09/03/24 04:35 Labs: Laboratory Results - last 24 hr 09/02/24 16:18: WBC 11.9 H, RBC 4.48 L, Hgb 14.0, Hct 40.5, MCV 90.4, MCH 31.3, MCHC 34.6, RDW Std Deviation 44.8 H, RDW Coeff of Ant 13.4, Plt Count 235, MPV 8.8, Immature Gran % (Auto) 0.600, Neut % (Auto) 84.5 H, Lymph % (Auto) 7.4 L, Grayson % (Auto) 6.4, Eos % (Auto) 0.8, Baso % (Auto) 0.3, Absolute Neuts (auto) 10.1 H, Absolute Lymphs (auto) 0.88, Nucleated RBC % 0, Sodium 135 L, Potassium 4.1, Chloride 103, Carbon Dioxide 27.0, Anion Gap 6, BUN 21 H, Creatinine 1.03, Estim Creat Clear Calc 70.55, Est GFR (MDRD) Af Amer 93, Est GFR (MDRD) Non-Af 77, BUN/Creatinine Ratio 20.4 H, Glucose 115 H, Calcium 9.3, Troponin I High Sens 448 H* 09/03/24 04:35: WBC 11.7 H, RBC 4.09 L, Hgb 12.7 L, Hct 36.2 L, MCV 88.5, MCH 31.1, MCHC 35.1, RDW Std Deviation 44.6 H, RDW Coeff of Ant 13.6, Plt Count 198, MPV 8.7, Immature Gran % (Auto) 0.400, Neut % (Auto) 81.1 H, Lymph % (Auto) 9.7 L, Grayson % (Auto) 7.5, Eos % (Auto) 1.0, Baso % (Auto) 0.3, Absolute Neuts (auto) 9.5 H, Absolute Lymphs (auto) 1.13, Nucleated RBC % 0, Sodium 137, Potassium 3.9, Chloride 106, Carbon Dioxide 24.0, Anion Gap 7, BUN 16, Creatinine 0.66 L, Estim Creat Clear Calc 87.88, Est GFR (MDRD) Af Amer 155, Est GFR (MDRD) Non-Af 128, BUN/Creatinine Ratio 24.2 H, Glucose 99, Calcium 8.9, Total Bilirubin 0.70, AST 502 H, ALT 79 H, Alkaline Phosphatase 60, Total Protein 6.0 L, Albumin 3.3, Globulin 2.7, Albumin/Globulin Ratio 1.2, Triglycerides 75, Cholesterol 204 H, LDL Cholesterol 118, VLDL Cholesterol 15, HDL Cholesterol 71 Micro: Microbiology 09/02/24 15:47 Mucosa - Nose SARS-CoV-2, Influenza & RSV (PCR) - Final Cardiology Labs/Tests 09/02/24 16:18: WBC 11.9 H, RBC 4.48 L, Hgb 14.0, Hct 40.5, MCV 90.4, MCH 31.3, MCHC 34.6, Plt Count 235, MPV 8.8, Immature Gran % (Auto) 0.600, Neut % (Auto) 84.5 H, Lymph % (Auto) 7.4 L, Grayson % (Auto) 6.4, Eos % (Auto) 0.8, Baso % (Auto) 0.3, Absolute Neuts (auto) 10.1 H, Nucleated RBC % 0, Sodium 135 L, Potassium 4.1, Chloride 103, Carbon Dioxide 27.0, Anion Gap 6, BUN 21 H, Creatinine 1.03, Est GFR (MDRD) Af Amer 93, Est GFR (MDRD) Non-Af 77, BUN/Creatinine Ratio 20.4 H , Glucose 115 H, Calcium 9.3 09/03/24 04:35: WBC 11.7 H, RBC 4.09 L, Hgb 12.7 L, Hct 36.2 L, MCV 88.5, MCH 31.1, MCHC 35.1, Plt Count 198, MPV 8.7, Immature Gran % (Auto) 0.400, Neut % (Auto) 81.1 H, Lymph % (Auto) 9.7 L, Grayson % (Auto) 7.5, Eos % (Auto) 1.0, Baso % (Auto) 0.3, Absolute Neuts (auto) 9.5 H, Nucleated RBC % 0, Sodium 137, Potassium 3.9, Chloride 106, Carbon Dioxide 24.0, Anion Gap 7, BUN 16, C reatinine 0.66 L, Est GFR (MDRD) Af Amer 155, Est GFR (MDRD) Non-Af 128, B UN/Creatinine Ratio 24.2 H, Glucose 99, Calcium 8.9, Total Bilirubin 0.70, Triglycerides 75, Cholesterol 204 H, LDL Cholesterol 118, VLDL Cholesterol 15, HDL Cholesterol 71 Rhythm: EKG: ECHO: Stress Test: Cardiac Cath: PCI: CT Surgery: Holter monitor: EPS: PPM: CXR: Chest CT Scan: Radiography Diagnostic Testing: Radiology Impression Chest X-Ray 09/02/24 16:08 IMPRESSION: No radiographic evidence of acute cardiopulmonary disease. Electronically Signed: Osiris Moreno MD at 16:57 EST , Echocardiogram 09/02/24 18:59 Interpretation Summary The estimated ejection fraction is 45-50 %. Diastolic function is indeterminate. There is mild biatrial dilatation. Mild (1+) mitral valve insufficiency. Ordering Physician: Alisa Garcia Referring Physician: Johnny Rivera Performed By: Arianne Rosas RDCS Physical Exam Const alert and oriented x3 HEENT normocephalic Eyes no scleral icterus Extremity no pedal edema Assessment & Plan Assessment/Plan (1) Acute ST elevation myocardial infarction (STEMI) of inferior wall: PLAN: Treated with drug-eluting stent to the RCA. We will start the patient on aspirin, Brilinta, metoprolol, statin. Patient did have a long pause and has also had episodes of nonsustained V. tach. In the past could be related to the beta-afua and the Brilinta that we have started him on. Brilinta related pauses resolve in the majority of patients. We will continue to monitor him on telemetry. He may need an additional day of monitoring due to these arrhythmias. Charges/Coding Visit Charges Inpatient E&M: 85559 Subs Hosp L1
[2024-09-03] MEDS: Atorvastatin Calcium 40 MG Tablet PO (21:19)
[2024-09-04 03:22] VITALS: BP 136/82; PULSE 72; RESP 18; TEMP 36.4; O2SAT 99
[2024-09-04 05:01] VITALS: BMI 20.5
[2024-09-04 07:51] LABS: Absolute Neutrophil Count 6.7 X10^3/uL (2.0-7.7); Basophil# 0.03 X10^3/uL; Basophil% 0.4 % (0-1); Eosinophil# 0.11 X10^3/uL; Eosinophils% 1.3 % (0-5); Hematocrit 38.4 % (40-54); Hemoglobin 12.8 g/dL (13.0-16.5); Lymphocyte % 11.7 % (19-41); Mean Corp Hgb Conc 33.3 g/dL (32-36); Mean Corpuscular Hgb 30.5 pg (27.0-32.0); Mean Corpuscular Volume 91.4 fL (80-94); Mean Platelet Vol. 9.1 fl (6.2-12.0); Monocyte# 0.72 X10^3/uL; Monocyte% 8.4 % (0-10); NRBC Flagged by Analyzer 0 % (0-5); Neutrophil # 6.67 X10^3/uL (2.7-7.7); Neutrophil % 77.7 % (47-70); Platelet Count 212 K/mm3 (150-450); RBC Distribution Width CV 13.6 % (11.6-14.6); RBC Distribution Width SD 45.7 fl (35.1-43.9); White Blood Count 8.6 K/mm3 (4.4-11.0)
[2024-09-04 08:29] LABS: ALB/GLOB Ratio 1.1 RATIO (0.9-2.4); AST(SGOT) 208 U/L (15-37); Alanine Aminotransfer ALT/SGPT 67 U/L (16-61); Albumin, Serum 3.2 g/dL (3.2-5.0); Alkaline Phosphatase 63 U/L (45-117); Anion Gap 5 (5-15); BUN 19 mg/dL (7-18); BUN/Creat Ratio 22.8 RATIO (10-20); Calcium,Total 8.7 mg/dL (8.5-10.1); Chloride 106 mmol/L (98-107); Creatinine, Serum 0.83 mg/dL (0.70-1.30); EST Glomerular Filtration Rate 98 mL/min (>60); Est Glom Filt Rate - Afr Amer 118 mL/min (>60); Estimated Creatinine Clearance 77.64 ml/min; Glucose 96 mg/dL (74-106); Magnesium 2.2 mg/dL (1.6-2.6); Phosphorus 2.4 mg/dL (2.5-4.9); Protein, Total 6.2 g/dL (6.4-8.2); Sodium Level 136 mmol/L (136-145)
[2024-09-04 09:20] VITALS: BP 125/76; PULSE 81; RESP 17; TEMP 37; O2SAT 99
[2024-09-04 09:22] VITALS: PULSE 81
[2024-09-04] MEDS: Metoprolol Tartrate 25 MG Tablet PO (09:22)
[2024-09-04] MEDS: TICAGRELOR 90 MG TABLET PO (09:22)
[2024-09-04] MEDS: Clotrimazole 1 APPLIC Tube TOPICAL (09:23)
[2024-09-04] MEDS: Aspirin E.C. 81 MG Tablet PO (09:23)
--- NOTE | 2024-09-04 10:00 | EKG12_ITS ---
Test Reason : AM EKG Blood Pressure : */* mmHG Vent. Rate : 69 BPM Atrial Rate : 69 BPM P-R Int : 152 ms QRS Dur : 106 ms QT Int : 428 ms P-R-T Axes : 80 -63 -55 degrees QTcB Int : 458 ms Sinus rhythm with marked sinus arrhythmia Left axis deviation Moderate voltage criteria for LVH, may be normal variant ( R in aVL , Choco product ) Inferior infarct (cited on or before 26-Apr-2018) Abnormal ECG When compared with ECG of 03-Sep-2024 04:55, T wave inversion no longer evident in Lateral leads Confirmed by SOCRATES VILLALOBOS, JENNIFER ([id number]), newspaper photo editor WHITNEY WEATHERS ([id number]) on 09/05/2024 7:57:15 AM Referred By: Johnny Rivera Confirmed By: JENNIFER RIVERA MD
[2024-09-04 10:53] VITALS: O2SAT 97
--- NOTE | 2024-09-04 11:08 | PCM.PN.CARD ---
Subjective Subjective Patient is doing very well. He denies any complaints. No further tacky or bradycardia arrhythmias since around 2 PM yesterday. Objective Data Vital Signs: Vital Signs Temp Pulse Resp BP Pulse Ox O2 Del Method 98.6 F 81 17 125/76 H 97 Room Air 09/04/24 09:20 09/04/24 09:22 09/04/24 09:20 09/04/24 09:20 09/04/24 10:53 09/04/24 10:53 Oxygen Delivery Method Room Air Weight: 138 lb 3.677 oz Body Mass Index (BMI) 20.5 Intake & Output: Intake and Output for Last 24 Hours 09/02/24 09/03/24 09/04/24 23:59 23:59 23:59 Intake Total 950 / 950 Balance 950 / 950 Lab / Micro Data 09/04/24 07:03 09/04/24 07:03 Labs: Laboratory Results - last 24 hr 09/04/24 07:03: WBC 8.6, RBC 4.20 L, Hgb 12.8 L, Hct 38.4 L, MCV 91.4, MCH 30.5, MCHC 33.3 D, RDW Std Deviation 45.7 H, RDW Coeff of Ant 13.6, Plt Count 212, MPV 9.1, Immature Gran % (Auto) 0.500, Neut % (Auto) 77.7 H, Lymph % (Auto) 11.7 L, Oliver % (Auto) 8.4, Eos % (Auto) 1.3, Baso % (Auto) 0.4, Absolute Neuts (auto) 6.7, Absolute Lymphs (auto) 1.00, Nucleated RBC % 0, Sodium 136, Potassium 4.0, Chloride 106, Carbon Dioxide 25.0, Anion Gap 5, BUN 19 H, Creatinine 0.83, Estim Creat Clear Calc 77.64, Est GFR (MDRD) Af Amer 118, Est GFR (MDRD) Non-Af 98, BUN/Creatinine Ratio 22.8 H, Glucose 96, Calcium 8.7, Phosphorus 2.4 L, Magnesium 2.2, Total Bilirubin 0.50, AST 208 H, ALT 67 H, Alkaline Phosphatase 63, Total Protein 6.2 L, Albumin 3.2, Globulin 3.0, Albumin/Globulin Ratio 1.1 Cardiology Labs/Tests 09/04/24 07:03: WBC 8.6, RBC 4.20 L, Hgb 12.8 L, Hct 38.4 L, MCV 91.4, MCH 30.5, MCHC 33.3 D, Plt Count 212, MPV 9.1, Immature Gran % (Auto) 0.500, Neut % (Auto) 77.7 H, Lymph % (Auto) 11.7 L, Oliver % (Auto) 8.4, Eos % (Auto) 1.3, Baso % (Auto) 0.4, Absolute Neuts (auto) 6.7, Nucleated RBC % 0, Sodium 136, Potassium 4.0, Chloride 106, Carbon Dioxide 25.0, Anion Gap 5, BUN 19 H, Creatinine 0.83, Est GFR (MDRD) Af Amer 118, Est GFR (MDRD) Non-Af 98, BUN/Creatinine Ratio 22.8 H, Glucose 96, Calcium 8.7, Phosphorus 2.4 L, Magnesium 2.2, Total Bilirubin 0.50 Rhythm: EKG: ECHO: Stress Test: Cardiac Cath: PCI: CT Surgery: Holter monitor: EPS: PPM: CXR: Chest CT Scan: Radiography Diagnostic Testing: Radiology Impression Echocardiogram 09/02/24 18:59 Interpretation Summary The estimated ejection fraction is 45-50 %. Diastolic function is indeterminate. There is mild biatrial dilatation. Mild (1+) mitral valve insufficiency. Ordering Physician: Alisa Garcia Referring Physician: Johnny Rivera Performed By: Arianne Rosas, RDCS Physical Exam Const alert and oriented x3 HEENT normocephalic Eyes no scleral icterus Resp normal respiratory effort Cardio regular rate Extremity no pedal edema Skin no rashes or lesions noted Psych mental status grossly normal Assessment & Plan Assessment/Plan (1) Acute ST elevation myocardial infarction (STEMI) of inferior wall: PLAN: Treated with drug-eluting stent to the RCA. We will start the patient on aspirin, Brilinta, metoprolol, statin. Patient did have a long pause and has also had episodes of nonsustained V. tach in the first 24 hours after an NH. However, he has not had any further tachy or bradycardia arrhythmias since 2 PM yesterday. I discussed keeping him overnight for more telemonitoring versus discharging him home later this evening. Discussed the risks and benefits of these approaches. Patient prefers to go home today. Okay to discharge patient home around 7 PM tonight if telemetry continues to remain unremarkable. Charges/Coding Visit Charges Inpatient E&M: 23328 [facility] Hosp L1
[2024-09-04 15:20] VITALS: BP 117/75; PULSE 68; RESP 17; TEMP 36.8; O2SAT 98
--- NOTE | 2024-09-04 15:33 | DS.PCM_ITS ---
Providers Date of Admission: 09/02/24 Date of Discharge: 09/04/24 Primary Care Physician: Dr. Waleska Hyde MD Reason For Visit: STEMI Diagnosis Discharge Diagnosis (1) Acute ST elevation myocardial infarction (STEMI) of inferior wall: Status: Acute Code(s): I21.19 - ST elevation (STEMI) myocardial infarction involving other coronary artery of inferior wall Plan STEMI-inferior wall -Post cath day 1 with thrombectomy and PCI to RCA -Continue aspirin, Plavix, metoprolol, atorvastatin -Add lisinopril 5 mg daily -Goal blood pressure will be less than 130/80 -Echocardiogram is pending -Check lipid panel -Recommend smoking cessation -Minimal reentry arrhythmia -Transfer to PCU -Cardiac rehab consultation -Anticipate discharge in the next 24 hours as long as he remains stable -Cardiology is following-appreciate input Transaminase elevation -Suspect related the above -Will trend and follow with repeat lab in a.m. Tinea pedis -Continue topical antifungal Tobacco abuse -Advised cessation -Patient reports he is previously had a 6-month period where he was not smoking -Nicotine patch available if desired however patient declines at this time DVT prophylaxis -Start subcu enoxaparin 40 daily CODE STATUS -Full code as verified at the time of admission Medications at Discharge Home Medications multivitamin 1 tab PO DAILY supplement 03/04/22 aspirin 81 mg tablet,delayed release 81 mg PO DAILY@0800 #0 tabs 09/04/24 atorvastatin 40 mg tablet 40 mg PO QHS #30 tabs 09/04/24 metoprolol tartrate 25 mg tablet 25 mg PO BID #60 tabs 09/04/24 ticagrelor 90 mg tablet (Brilinta) 90 mg PO BID #60 tabs 09/04/24 triamcinolone acetonide 0.1 % topical cream 1 applic topical TID PRN PRN rash 09/04/24 Hospital Course Procedures 2-D Echocardiogram, Cardiac catheterization, EKG and - (Chest x-ray) Summary of Care Provided Minutes Spent on Discharge: 39 Hospital Course: Mr. Hinkle is a 64-year-old white male who presented to emergency department [facility] on 09/02/2024 with cough and chest pain. Patient has a history of tobacco abuse with no other medical history and reported he been having an intermittent cough about 2 weeks with subsequent chest pain. Patient indicated he intermittently felt kind of sweaty and chilled and possibly had some shortness of breath and lightheadedness but no chest pain until the day of presentation. On the day of presentation he developed midsternal chest pain at 3 PM that was persistent so he came to emergency department for evaluation. At the time of admission he was still having some mild chest pain but felt slightly better than on presentation. Vital signs at the time of presentation showed temperature of 96.8, heart rate 85, respiratory 24, blood pressure was 171/102 with a repeat of 162/76 and pulse ox was 91% on room air with a repeat of 100% on room air. Initial CBC showed a mild leukocytosis but white count of 11.9 and a left shift having an 84 per 5% neutrophilia. Chemistry panel showed mild hyponatremia the sodium of 135 and a slightly elevated BUN at 21 with creatinine of 1.03. Baseline appears to be between 1.6 and 1.8. AST was elevated at 502 with an ALT of 79. Initial troponin was 448. EKG was done in the emergency department which revealed STEMI and STEMI alert was called. He was taken emergently to the [facility] on 09/02/2024 where a TRUPTI was performed after thrombectomy of the RCA. Postcatheterization he was placed on appropriate therapy with a beta-suzan, aspirin, Brilinta, and statin. Blood pressure was not high enough to tolerate lisinopril so this was discontinued. An echocardiogram was done on the and showed an EF of 45 to 50% with indeterminate diastolic dysfunction, mild biatrial dilation and mild mitral valve insufficiency. LV dysfunction was global. Lipids were assessed and he had a total cholesterol of 204 with an LDL of 118 and an HDL of 71. The patient had some intermittent short runs of nonsustained monomorphic VT which dissipated with time and was likely related to reperfusion. He did have a 5.4-second pause on the evening of 09/03/2024. He remained monitored on telemetry and was asymptomatic at the time of the event. He was counseled by Dr. Rivera that ultimately we would like to watch him for another 24 hours, but the patient was insistent on going home. We did monitor on telemetry for the rest of the and he had no further events. He was discharged home with prescriptions for aspirin, Brilinta, metoprolol, and atorvastatin. We counseled him on the importance of dual antiplatelet therapy for at least 12 months and not to stop any aspirin or Brilinta unless instructed to do so by cardiology. He was also counseled on smoking cessation. Patient was able to be discharged home in stable condition on the evening of 09/04/2024. He may return to work on Tuesday. He was evaluated by the dietitian and counseled on a cardiac diet as well as cardiac rehab. Discharge diagnoses: STEMI-inferior wall Transaminase elevation-trending down HFrEF-mild reduction in newly diagnosed status post tummy Hyperlipidemia Tinea pedis Tobacco abuse Physical Exam Const alert, oriented x3, no apparent distress, average body habitus, no limitations and well nourished Constitutional Narrative: Thin, upper middle-aged, white male, sitting up in bed, appears older than stated age, appears comfortable, nontoxic General Appearance: cooperative, comfortable, well kempt and well developed Exam Limitations: no limitations HEENT normocephalic, head/scalp atraumatic and moist oral mucous membranes HEENT Narrative: Mild to moderate hearing loss, dentition is poor, Mallampati is 2, no thrush Eyes EOMs intact bilaterally and conjunctivae normal Eyes Narrative: No scleral icterus Neck supple Neck Narrative: Trachea midline Resp normal respiratory effort, no retractions, no use of accessory muscles and clear to auscultation bilaterally Resp Narrative: Diminished diffusely but clear Auscultation: Negative for rales, rhonchi or wheezes Cardio regular rate, regular rhythm, S1 normal heart sound, S2 normal heart sound, no murmurs, no rub, no gallops and no clicks GI normal to inspection, nondistended, normoactive bowel sounds, soft to palpation and non-tender Extremity no clubbing, cyanosis or edema Extremity Narrative: Radial pulses are 2+, pedal pulses 1+ bilaterally Skin skin turgor normal, no jaundice, no petechiae and no mottling Neuro oriented x3, moves all extremities and no focal motor deficits Speech: speech normal Psych affect normal Psych Narrative: Very pleasant, interacts appropriately Weight / BMI Weight Weight: 62.7 kg Body Mass Index (BMI) 20.5 ABG / Lab / Microbiology Data 09/04/24 07:03 09/04/24 07:03 Laboratory: Laboratory Results - last 24 hr 09/04/24 07:03: WBC 8.6, RBC 4.20 L, Hgb 12.8 L, Hct 38.4 L, MCV 91.4, MCH 30.5, MCHC 33.3 D, RDW Std Deviation 45.7 H, RDW Coeff of Ant 13.6, Plt Count 212, MPV 9.1, Immature Gran % (Auto) 0.500, Neut % (Auto) 77.7 H, Lymph % (Auto) 11.7 L, Williams % (Auto) 8.4, Eos % (Auto) 1.3, Baso % (Auto) 0.4, Absolute Neuts (auto) 6.7, Absolute Lymphs (auto) 1.00, Nucleated RBC % 0, Sodium 136, Potassium 4.0, Chloride 106, Carbon Dioxide 25.0, Anion Gap 5, BUN 19 H, Creatinine 0.83, Estim Creat Clear Calc 77.64, Est GFR (MDRD) Af Amer 118, Est GFR (MDRD) Non-Af 98, B UN/Creatinine Ratio 22.8 H, Glucose 96, Calcium 8.7, Phosphorus 2.4 L, Magnesium 2.2, Total Bilirubin 0.50, AST 208 H, ALT 67 H, Alkaline Phosphatase 63, Total Protein 6.2 L, Albumin 3.2, Globulin 3.0, Albumin/Globulin Ratio 1.1 Microbiology: Microbiology 09/02/24 15:47 Mucosa - Nose SARS-CoV-2, Influenza & RSV (PCR) - Final D/C Instructions Discharge Diet: Low fat / Low cholesterol Discharge Activity: Return to Normal Activity Return to work on: 09/09/24 DC O2, CPAP, BIPAP Needs Home O2 Discharge instructions: No Meaningful Use Info Meaningful Use Meaningful Use Diagnoses (Choose all that apply): AMI AMI/Post PCI/Angioplasty Aspirin given w/in 24hrs of arrival?: Yes ASA at discharge?: Yes Antiplatelet Therapy at Discharge:: Yes Statins at discharge?: Yes Rohit/ARB at discharge?: No Reason Rohit/ARB not ordered:: Hypotension Beta Suzan at discharge?: Yes Done w/ Acute MA measure.: Yes Documented LVEF (%): 45 Ischemic Stroke Statin Dosing Therapy Reference: STATIN DOSE THERAPY REFERENCE: * Patients > 75 years receive moderate or high dose statin therapy. * Patients 75 years or YOUNGER should receive HIGH intensity statin dose unless contraindicated. You will be required to document reason for non-treatment if statin daily dose does not meet guidelines. HIGH DOSE STATIN THERAPY DAILY Atorvastatin > than or = to 40 mg Rosuvastatin > than or = to 20 mg Amlodipine + Atorvastatin > than or = to 2.5/40 mg Ezetimibe + Simvastatin 10/80 mg Simvastatin 80mg Discharge Plan Admission Admit Date/Time: 09/02/24 17:30 Primary Reason for Your Visit: Chest pain Attending Provider: Candy Gimenez Primary Care Provider: Waleska Hyde Consulting Providers: Alisa Garcia; Johnny Rivera Instructions Forms: Work Excuse Patient Instructions: CAD Discharge Orders/Prescriptions Prescriptions: New atorvastatin 40 mg Tablet 40 mg PO QHS Qty: 30 2RF aspirin 81 mg Tablet,Delayed Release (Dr/Ec) 81 mg PO DAILY@0800 Qty: 0 0RF metoprolol tartrate 25 mg Tablet 25 mg PO BID Qty: 60 2RF Brilinta 90 mg Tablet 90 mg PO BID Qty: 60 11RF Continued multivitamin Tablet 1 tab PO DAILY triamcinolone acetonide 0.1 % cream 1 applic topical TID PRN PRN (Reason: rash) Referrals / Follow Up: Waleska Hyde MD [Primary Care Provider] - Within 1 Week Clinton Reynoso MD [Med Staff - Active Staff] - 10/15/24 10:00 am (Appointment is with Denys Jarvis N.P.) Disposition Disposition (needs filled in before D/C Order can be placed): Home, Self Care Charges/Coding Visit Charges Inpatient E&M: 05685 Disch Hosp >30min
--- NOTE | 2024-09-04 16:12 | CASEMGMT ---
Patient is discharging on RADHA Mazariegos CM called [facility], copay is $439.69, $0 copay card applied. RADHA CM in to discuss needs at discharge and provided with $5 copay card as patient has commercial insurance. Patient denies needs or help at discharge. Patient denies further questions or concerns.
== END 2024-09-04 18:50 | disposition home or self-care (01) | DRG 322 ==
LOC: ED 16:37 → ICU 17:48 → PCU 09-03 11:48
PROVIDERS: Physician Assistant; Admitting Provider Specialist; Emergency Provider Surgery; PCP Family Medicine; Referring Provider Specialist; Visit Provider Internal Medicine
DX: I21.19 ST elevation (STEMI) myocardial infarction involving other coronary artery of inferior wall (principal); B35.3 Tinea pedis; F17.210 Nicotine dependence, cigarettes, uncomplicated; I25.10 Atherosclerotic heart disease of native coronary artery without angina pectoris; I25.84 Coronary atherosclerosis due to calcified coronary lesion; L24.9 Irritant contact dermatitis, unspecified cause; Z79.02 Long term (current) use of antithrombotics/antiplatelets; Z95.5 Presence of coronary angioplasty implant and graft; Z79.82 Long term (current) use of aspirin; Z91.030 Bee allergy status; R74.01 Elevation of levels of liver transaminase levels; Z79.899 Other long term (current) drug therapy
CPT/HCPCS: 36415; 71046; 80048; 80053; 80061; 83735; 84100; 84484; 85025; 87631; 92941; 93005; 93306; 93454; 94762; 99285; 99406; C1757; Q9967; A4216; C1725; C1769; C1874; C1887; C1894; C9606; J1327

== ENCOUNTER 2024-09-24 14:26 | Emergency (ER) | payer BC, SELFPAY ==
[2024-09-24 14:27] VITALS: BP 166/89; PULSE 74; RESP 16; TEMP 36.6; O2SAT 93; BMI 22.1
--- NOTE | 2024-09-24 14:44 | ED.VIS.CHEST ---
HPI History of Present Illness Chief Complaint: Chest Pain Informant: patient Narrative Narrative: 64-year-old male presenting with chest discomfort that started at rest while he was sitting watching TV 2-3 hours prior to evaluation, states sometimes it is left chest sometimes it is midsternal nonpleuritic radiates into his back and his throat and he has had some intermittent tingling in his left arm. These are similar to symptoms that he had a month ago when he was diagnosed with a STEMI and had a stent. He denies any sharp tearing sensations or near syncope/syncope. He states when he walked up the hill to get to the ER it was worse and he was a little out of breath temporarily. Pain has been constant since it started a couple hours ago. He has been compliant with his aspirin and Brilinta and other new prescriptions, he has taken no other medications for this today. He states he was shoveling snow yesterday and he did not have any of the symptoms during that. States he has been wearing nicotine patches trying to quit smoking. [facility] Medical History Acute ST elevation myocardial infarction (STEMI) of inferior wall (09/02/24) Arteriosclerosis of coronary artery Home Medications ?Medication ?Instructions ?Recorded ?Last Taken ?Type multivitamin 1 tab PO DAILY supplement 03/04/22 Unknown History aspirin 81 mg tablet,delayed 81 mg PO DAILY@0800 #0 tabs 09/04/24 Unknown Rx release atorvastatin 40 mg tablet 40 mg PO QHS #30 tabs 09/04/24 Unknown Rx metoprolol tartrate 25 mg tablet 25 mg PO BID #60 tabs 09/04/24 Unknown Rx ticagrelor 90 mg tablet (Brilinta) 90 mg PO BID #60 tabs 09/04/24 Unknown Rx triamcinolone acetonide 0.1 % 1 applic topical TID PRN PRN rash 09/04/24 Unknown History topical cream Allergy/AdvReac Type Severity Reaction Status Date / Time insect venom (yellow jacket) Allergy Angioedema Verified 09/02/24 15:45 Surgical History Stented coronary artery (09/02/24) H/O shoulder surgery Social History housing: house Smoking Status: Former smoker ROS ROS ED Constitutional Constitutional ED: Denies chills, fever(s) or sweats Eyes Eyes: Denies change in vision or diplopia ENT ENT ED: Denies rhinorrhea or sore throat Cardiovascular Cardiovascular: Reports as per HPI, chest pain and radiating jaw, neck or arm pain; Denies leg edema or palpitations Respiratory/Chest Respiratory/Chest: Reports dyspnea on exertion; Denies cough Gastrointestinal Gastrointestinal: Denies abdominal pain, diarrhea, nausea or vomiting Genitourinary Genitourinary ED: Denies dysuria or hematuria Musculoskeletal Musculoskeletal: Denies back pain or neck pain Integumentary Denies abscess or rash Neurologic Neurologic: Denies headache(s), paresthesias or weakness Psychiatric Psychiatric: Denies anxiety or suicidal thoughts EXAM Physical Exam Const Vital Signs: 09/24/24 14:27 09/24/24 14:42 09/24/24 14:54 Temperature 97.9 F Temperature Source Temporal Pulse Rate 74 61 Respiratory Rate 16 Respiratory Effort Normal Non-Labored Blood Pressure 166/89 H 148/86 H Blood Pressure Mean 114 Pulse Ox 93 Oxygen Delivery Method Room Air 09/24/24 14:54 09/24/24 15:15 09/24/24 16:08 Temperature Temperature Source Pulse Rate 63 65 62 Respiratory Rate 18 22 H 22 H Respiratory Effort Blood Pressure 148/86 H 137/105 H 135/78 H Blood Pressure Mean 106 115 97 Pulse Ox 99 98 99 Oxygen Delivery Method Room Air Room Air Room Air 09/24/24 16:24 Temperature Temperature Source Pulse Rate 62 Respiratory Rate 16 Respiratory Effort Blood Pressure 148/72 H Blood Pressure Mean 97 Pulse Ox 100 Oxygen Delivery Method Room Air Positive well nourished and well developed General Appearance ED: well developed and NAD HEENT Reports moist mucous membranes normocephalic and atraumatic Eyes PERRL and EOMs intact bilaterally Neck full ROM and supple Resp normal respiratory effort and clear to auscultation bilaterally Cardio regular rate and regular rhythm; Negative for diaphoretic Heart Sounds: murmur systolic I/ soft left sternal border Peripheral Pulses: pulses 2+ throughout and radial pulses present bilateral 2+ GI non-tender and non-distended Auscultation: normoactive bowel sounds Palpation: soft Back/Spine no CVA tenderness General Back: other FROM Extremity normal to inspection General Extremety ED: Negative for edema, pulses abnormal or tenderness General Extremity: Negative for edema or pulses abnormal Neuro oriented x3, CN's II-XII intact bilaterally and no sensory deficits noted Sensorium / Orientation: awake and alert Motor Exam: strength 5/5 throughout Skin no rashes or lesions noted and no wounds Heart Score History: Highly Suspicious ECG: Nonspecific Repolarization Age: >45 - <65 years Risk Factors: >/= 3 Risk Factors or History of CAD Troponin: >1 - <3 Normal Limit Score: 7 MDM MDM MDM Narrative Medical decision making narrative: Patient was given aspirin and nitroglycerin, and afterwards his discomfort completely resolved. His EKG does not show STEMI, but there are diffuse precordial T wave inversions, these are new compared with his last EKG however his last EKG was a day or 2 after he had his STEMI while in the hospital for it. He had some episodes of nonsustained ventricular tachycardia while in the hospital, the staff internist office based only wanted to keep him another day or so, but the patient declined and wanted to leave. His troponin is a little elevated here at 114, I am waiting on the second 1 to return, his chest x-ray on my interpretation 1 view shows a narrow mediastinum. Patient has been compliant with his aspirin and Brilinta. Reviewed last cardiology note as well as the Gis Analyst Developer report which showed a mid RCA lesion that was stented, yet no other areas of focal CAD. At this time he is asymptomatic. I discussed with cardiology, Dr. Perera was on. We reviewed the patient's case and his recent STEMI. He states if his troponin is similar or decreasing, patient can be discharged home with instructions to avoid exertion and to follow-up in the office, and advises adding amlodipine 5 mg to his regimen if his blood pressure will tolerate which it appears to be able. Awaiting repeat troponin; checked out to PM ED physician at shift change for reevaluation. Lab Data Attestation: I reviewed the patient's lab results. Labs: Laboratory Results - last 24 hr 09/24/24 14:41 WBC 12.4 H RBC 4.42 L Hgb 13.4 Hct 40.0 MCV 90.5 MCH 30.3 MCHC 33.5 RDW Std Deviation 44.3 H RDW Coeff of Ant 13.2 Plt Count 326 MPV 8.8 Immature Gran % (Auto) 0.500 Neut % (Auto) 80.0 H Lymph % (Auto) 9.0 L [place] % (Auto) 10.0 Eos % (Auto) 0.3 Baso % (Auto) 0.2 Absolute Neuts (auto) 9.9 H Absolute Lymphs (auto) 1.12 Nucleated RBC % 0 Sodium 136 Potassium 4.3 Chloride 102 Carbon Dioxide 29.0 Anion Gap 6 BUN 16 Creatinine 0.78 Estim Creat Clear Calc 87.59 Est GFR (MDRD) Af Amer 128 Est GFR (MDRD) Non-Af 106 BUN/Creatinine Ratio 20.5 H Glucose 78 Calcium 9.7 Troponin I High Sens 114 H Radiography Diagnostic Testing: Clinical Impression(s) from Imaging Studies Chest X-Ray 09/24/24 14:57 IMPRESSION: No acute airspace abnormality. Reading Location: [facility] Rhythm Strip Rhythm Strip: Sinus Rhythm Rate: 70 Ectopy: None EKG Initial EKG: Attestation: I personally reviewed and interpreted this EKG as follows: Interpretation: Sinus Rhythm, No Acute Injury Pattern and Inverted T-Waves (inf-laterally) Prior EKG tracings: available for review Prior: Changed (prior EKGs from STEMI; precordial T-wave inversions new c/w prior) Management Discussion w/another healthcare provider: Data Warehouse Analyst (cardiology) Discharge Plan Triage Chief Complaint: Chest Pain ED Provider: Ross Youssef Dx/Rx/DC Orders Clinical Impression: Chest pain Prescriptions: No Action multivitamin Tablet 1 tab PO DAILY triamcinolone acetonide 0.1 % cream 1 applic topical TID PRN PRN (Reason: rash) atorvastatin 40 mg Tablet 40 mg PO QHS Qty: 30 2RF aspirin 81 mg Tablet,Delayed Release (Dr/Ec) 81 mg PO DAILY@0800 Qty: 0 0RF metoprolol tartrate 25 mg Tablet 25 mg PO BID Qty: 60 2RF Brilinta 90 mg Tablet 90 mg PO BID Qty: 60 11RF Primary Care Provider: Waleska Hyde Referrals: Waleska Hyde MD [Primary Care Provider] - Print Language: Thai
[2024-09-24] MEDS: Aspirin 81 MG TAB.CHEW 162 MG PO (14:53)
[2024-09-24 14:54] VITALS: BP 148/86; PULSE 61; PULSE 63; RESP 18; O2SAT 99
[2024-09-24] MEDS: Nitroglycerin SL (ED/IMG/CATH) 0.4 MG TABLET SL (14:54)
--- NOTE | 2024-09-24 14:57 | RAD_ITS ---
PROCEDURE: CHEST 1 VIEW (PORTABLE) REASON FOR EXAM: Chest pain TECHNIQUE: Frontal view of the chest COMPARISON: 05/29/2018 FINDINGS: Cardiomediastinal silhouette is within normal limits. Lungs are clear. No sizable pneumothorax. RAD/Chest 1 View (Portable) IMPRESSION: No acute airspace abnormality. Reading Location: [facility]
[2024-09-24 15:11] LABS: Absolute Lymphocyte Count 1.12 X10^3/uL (0.83-4.51); Absolute Neutrophil Count 9.9 X10^3/uL (2.0-7.7); Basophil# 0.03 X10^3/uL; Basophil% 0.2 % (0-1); Eosinophil# 0.04 X10^3/uL; Eosinophils% 0.3 % (0-5); Hemoglobin 13.4 g/dL (13.0-16.5); Lymphocyte # 1.12 X10^3/ul (0.83-4.51); Mean Corp Hgb Conc 33.5 g/dL (32-36); Mean Corpuscular Hgb 30.3 pg (27.0-32.0); Mean Corpuscular Volume 90.5 fL (80-94); Mean Platelet Vol. 8.8 fl (6.2-12.0); Monocyte# 1.24 X10^3/uL; NRBC Flagged by Analyzer 0 % (0-5); Neutrophil # 9.91 X10^3/uL (2.7-7.7); Platelet Count 326 K/mm3 (150-450); RBC Distribution Width CV 13.2 % (11.6-14.6); RBC Distribution Width SD 44.3 fl (35.1-43.9); Red Blood Count 4.42 M/mm3 (4.6-6.2); White Blood Count 12.4 K/mm3 (4.4-11.0)
[2024-09-24 15:15] VITALS: BP 137/105; PULSE 65; RESP 22; O2SAT 98
[2024-09-24 15:37] LABS: Anion Gap 6 (5-15); BUN 16 mg/dL (7-18); BUN/Creat Ratio 20.5 RATIO (10-20); Calcium,Total 9.7 mg/dL (8.5-10.1); Chloride 102 mmol/L (98-107); Creatinine, Serum 0.78 mg/dL (0.70-1.30); EST Glomerular Filtration Rate 106 mL/min (>60); Est Glom Filt Rate - Afr Amer 128 mL/min (>60); Estimated Creatinine Clearance 87.59 ml/min; Glucose 78 mg/dL (74-106); Potassium 4.3 mmol/L (3.5-5.1); Sodium Level 136 mmol/L (136-145); Troponin-I HS (w/2H Reflex) 114 pg/mL (3.0-78.0)
[2024-09-24 16:08] VITALS: BP 135/78; PULSE 62; RESP 22; O2SAT 99
[2024-09-24 16:24] VITALS: BP 148/72; PULSE 62; RESP 16; O2SAT 100
[2024-09-24 17:06] LABS: Reflex Troponin-HS? (from REC) Y
[2024-09-24 17:31] LABS: Troponin-I HS 112 pg/mL (3.0-78.0)
[2024-09-24 17:56] VITALS: BP 148/72; PULSE 62; RESP 16; TEMP 36.6; O2SAT 100
--- NOTE | 2024-09-24 18:17 | ED.RN ---
pt does not want to wait for physician or dc paperwork.
== END 2024-09-24 18:18 | disposition left against medical advice (07) ==
LOC: ED 14:48
PROVIDERS: Emergency Provider Emergency Medicine; PCP Family Medicine; Visit Provider Emergency Medicine
DX: R07.89 Other chest pain (principal); I25.2 Old myocardial infarction; I25.10 Atherosclerotic heart disease of native coronary artery without angina pectoris; Z95.5 Presence of coronary angioplasty implant and graft; Z79.82 Long term (current) use of aspirin; Z79.899 Other long term (current) drug therapy; Z87.891 Personal history of nicotine dependence
CPT/HCPCS: 71045; 80048; 84484; 85025; 93005; 99284; A4216

== ENCOUNTER → 2024-10-24 | Outpatient (CLI) | payer MEDICARE, SELFPAY ==
[2024-10-24 12:49] LABS: AST(SGOT) 25 U/L (<=37); Alanine Aminotransfer ALT/SGPT 21 U/L (<=46); Albumin, Serum 4.3 g/dL (3.4-4.8); Alkaline Phosphatase 74 U/L (40-129); Bilirubin, Direct 0.11 mg/dL (0.00-0.30); Cholesterol 168 mg/dL (<=200); Globulin 2.5 g/dL (2.2-4.2); High Density Lipoprotein 76 mg/dL; Low Density Lipoprotein Calc. 80 mg/dL; Protein, Total 6.8 g/dL (5.9-8.4); Total Bilirubin 0.23 mg/dL (0.00-1.30); Triglycerides 56 mg/dL; Very Low Density Lipoprotein 11 mg/dL (5-40)
== END | disposition home or self-care (01) ==
PROVIDERS: PCP Family Medicine; Referring Provider Internal Medicine Cardiovascular Disease; Visit Provider Family Medicine
DX: I25.10 Atherosclerotic heart disease of native coronary artery without angina pectoris (principal); I25.2 Old myocardial infarction
CPT/HCPCS: 36415; 80061; 80076

== ENCOUNTER → 2024-12-24 | Outpatient (CLI) | payer MEDICARE, SELFPAY ==
--- NOTE | 2024-12-24 08:28 | RAD_ITS ---
EXAM: XR Left Hip With Pelvis When Performed, 2 or 3 Views CLINICAL INDICATION: LEFT HIP PAIN TECHNIQUE: Two or three views of the left hip with pelvis when performed. COMPARISON: No relevant prior studies available. FINDINGS: BONES/JOINTS: Mild degenerative change of the hip joint. No acute fracture. No dislocation. SOFT TISSUES: Unremarkable. RAD/HIP, UNI W/ Pelvis 2-3 Views IMPRESSION: Degenerative changes as above. Reading Location: [facility]
== END | disposition home or self-care (01) ==
LOC: MTRAD 08:27
PROVIDERS: PCP Family Medicine; Referring Provider Family Medicine; Visit Provider Family Medicine
DX: M25.552 Pain in left hip (principal)
CPT/HCPCS: 73502

== ENCOUNTER → 2025-05-22 | Outpatient (CLI) | payer MEDICARE, SELFPAY ==
[2025-05-22 18:37] LABS: AST(SGOT) 27 U/L (<=37); Alanine Aminotransfer ALT/SGPT 23 U/L (<=46); Albumin, Serum 4.5 g/dL (3.4-4.8); Alkaline Phosphatase 81 U/L (40-129); Bilirubin, Direct 0.18 mg/dL (0.00-0.30); Cholesterol 188 mg/dL (<=200); Globulin 2.6 g/dL (2.2-4.2); Low Density Lipoprotein Calc. 109 mg/dL; Triglycerides 57 mg/dL; Very Low Density Lipoprotein 11 mg/dL (5-40); cholesterol:hdl ratio screen 2.77
== END | disposition home or self-care (01) ==
LOC: MTLAB 13:49
PROVIDERS: PCP Family Medicine; Referring Provider Student in an Organized Health Care Education/Training Program; Visit Provider Student in an Organized Health Care Education/Training Program
DX: E78.00 Pure hypercholesterolemia, unspecified (principal)
CPT/HCPCS: 36415; 80061; 80076